=== PATIENT | male | born 1995 | race Caucasian/White ===

== ENCOUNTER 2017-02-07 02:07 | Observation (INO) | payer OTHER ==
[~2017-02-07] VITALS: Ht 185.4 cm; Wt 72.6 kg
--- NOTE | 2017-02-07 02:39 | NUR ---
21YO MALE TO TRIAGE W/CO ABD PAIN THAT AWOKE HIM TONITE. DENIES ANY N,V,D. STTES LAST BM WAS 02/06.
--- NOTE | 2017-02-07 02:46 | NUR ---
AMB BACK TO RM 5 VOMITTED LG AMT UNDIG FOOD
--- NOTE | 2017-02-07 03:03 | NUR ---
MOVED TO 4 LABS DRAWN -- SST.LAV,BLUE,DOYLE,PINK ALL SENT
--- NOTE | 2017-02-07 03:05 | NUR ---
KIMBERLEE MENDIETA MD
[2017-02-07 03:06] LABS: ABSOLUTE BASOPHIL COUNT 0 /CUMM (0.0-0.2); ABSOLUTE EOSINOPHIL COUNT 0.3 /CUMM (0.0-0.7); ABSOLUTE GRANULOCYTE CT 15.4 /CUMM (1.4-6.5); ABSOLUTE LYMPH COUNT 2.2 /CUMM (1.2-3.4); ABSOLUTE MONOCYTE COUNT 1.7 /CUMM (0.10-0.60); BASOPHIL % 0.1 % (0.0-2.0); EOSINOPHIL % 1.8 % (0-5); GRANULOCYTE % 78.1 % (42.2-75.2); HEMATOCRIT 42.7 % (42-52); MEAN CORPUSCULAR HGB 30.1 PG (27.0-31.0); MEAN CORPUSCULAR VOLUME 91.2 FL (80.0-94.0); MEAN PLATELET VOLUME 7.7 FL (7.4-10.4); PLATELET COUNT 274 /CUMM (130-400); RBC DISTRIBUTION WIDTH 12.7 % (11.5-14.5); RED BLOOD CELL CT 4.69 /CUMM (4.70-6.10); WHITE BLOOD CELL COUNT 19.8 /CUMM (4.8-10.8)
--- NOTE | 2017-02-07 03:20 | NUR ---
TO AND FROM CT VIA STRETCHER
--- NOTE | 2017-02-07 03:42 | ED GI/GU/ABDOMINAL COMPLAINT ---
History of Present Illness General Chief Complaint: Abdominal Pain/Flank Pain Stated Complaint: "PER ABD PAIN" Vital Signs & Intake/Output Vital Signs & Intake/Output Vital Signs Date Time Temp Pulse Resp B/P B/P Pulse O2 O2 Flow FiO2 Mean Ox Delivery Rate 02/07 0510 97.0 56 18 106/65 98 Room Air 02/07 0304 98 Room Air 02/07 0243 97.4 68 16 120/78 98 Room Air Room Air Allergies Coded Allergies: No Known Allergies (02/07/17) Reconcile Medications No Known Home Medications Triage Note: 21YO MALE TO TRIAGE W/CO ABD PAIN THAT AWOKE HIM TONITE. DENIES ANY N,V,D. STTES LAST BM WAS 02/06. HPI: Mr. Coats 21 YO M, smoker(10 cigarettes/day) with no significant PMH presented to ED with CC of right lower abdominal since yesterday morning, nausea and vomiting for last 6 hours. According to patient he was all right since last morning when he had pain in right lower abdomen, continuous, sharp, 7/10, and gradually increased to 8/10, aggravated by movement and relieved if he stayed still in bed. He reported that last time he had meal around 6:00pm and after that he was feeling nauseated and he vomited multiple times before he came to hospital and last time he throw up in the hospital. The vomitus was brownish in color, non bloody and no foul smell in it. Patient denied burning micturation, diarrhea, recent flu, chest pain, dyspnea, rash and headache. I examined the patient, on examination: right iliac fossa tenderness +ve rebound tenderness +ve Rovsing sign +VE Sluggish bowel movements Mohamud score: 7/10 (JOHANA MOSES MD) General Source: patient, family Exam Limitations: no limitations Triage Nurses Notes Reviewed? yes Duration: day(s): Timing: recent history Quality/Severity: sharpness Location: right lower quadrant Radiation: no radiation Activities at Onset: none Prior Abdominal Problems: none Modifying Factors: Worsens With: movement, palpation. Associated Symptoms: abdominal pain, nausea/vomiting (LEONOR LOU,FRANCESCA Feliz) Past History Travel History Traveled to [place] past 21 day No Psychosocial History What is your primary language Ecuadorean Tobacco Use: Current Daily Use Daily Tobacco Use Amount/Type: =< 4 Cigarettes daily (JOHANA MOSES MD) Medical History Any Pertinent Medical History? see below for history Surgical History Surgical History: none Family History Hx Contributory? No (FRANCESCA COOK MD) Review of Systems Review of Systems Constitutional: Reports: malaise. EENTM: Reports: no symptoms. Respiratory: Reports: no symptoms. Cardiovascular: Reports: no symptoms. GI: Reports: abdominal pain, nausea, vomiting. Genitourinary: Reports: no symptoms. Musculoskeletal: Reports: no symptoms. Skin: Reports: no symptoms. (JOHANA MOSES MD) Physical Exam Physical Exam General Appearance: alert, awake, moderate distress Head: atraumatic Eyes: Bilateral: normal appearance, PERRL, EOMI, normal inspection. Ears, Nose, Throat, Mouth: hearing grossly normal Neck: normal inspection Respiratory: normal breath sounds Cardiovascular: regular rate/rhythm Gastrointestinal: abnormal bowel sounds, rebound, tenderness Extremities: normal range of motion Neurologic/Psych: awake, alert, oriented x 3 Skin: intact, normal color, warm/dry (JOHANA MOSES MD) Physical Exam Gastrointestinal: normal bowel sounds, soft, rlq tenderness. positive rosvig's sign Core Measures ACS in differential dx? No Severe Sepsis Present: No Septic Shock Present: No (LEONOR LOU,FRANCESCA Feliz) Progress Differential Diagnosis: appendicitis, urethritis, gastroenteritis, mesenteric lymphadenitis, Meckel's diverticulitis Plan of Care: Orders Procedure Date/time Status Nothing by Mouth 02/07 B Active Pathway - chart 02/07 0550 Active Patient Data 02/07 0550 Active Saline Lock 02/07 05 Active Misc Message 02/07 05 Active ED Holding Orders 02/07 0539 Active Vital Signs 02/07 0539 Active Code Status 02/[address] in observation 02/07 0529 Active LIPASE 02/07 0213 Complete HEPATIC FUNCTION PANEL 02/07 021 Complete CBC WITHOUT DIFFERENTIAL 02/07 213 Complete BASIC METABOLIC PANEL 02/07 021 Complete AMYLASE 02/07 0213 Complete VTE Mechanical Prophylaxis 02/07 UNK Active Vital Signs 02/07 UNK Active Intake & Output 02/07 UNK Active Current Medications Sig/Bird Start time Last Medication Dose Stop Time Status Admin Ampicillin Sodium/ 3,000 MG Q6 02/07 1030 UNVr Sulbactam Sodium (Unasyn) Sodium Chloride 100 ML (Normal Saline 0.9%) Dextrose/Sodium 1,000 ML .[id number] 02/07 600 UNVr 02/07 Chloride 0610 (D5W-1/2 Normal Saline 1000ML) Heparin Sodium 5,000 UNIT Q8 02/07 600 UNVr (Porcine) Morphine Sulfate 4 MG Q4-6 PRN PRN 02/07 600 UNVr 02/07 (Morphine) 0622 Ondansetron HCl 4 MG Q8P PRN 02/07 600 UNVr (Zofran) Laboratory Tests 02/07/17 0255: Anion Gap 15, Estimated GFR > 60, BUN/Creatinine Ratio 25.0, Glucose 109 H, Calcium 10.0, Total Bilirubin 0.6, Direct Bilirubin 0.4, AST 25, ALT 25, Alkaline Phosphatase 61, Total Protein 7.6, Albumin 5.0, Amylase 88, Lipase 435 H, CBC w Diff MAN DIFF ORDERED, RBC 4.69 L, MCV 91.2, MCH 30.1, RDW 12.7, MPV 7.7, Gran % 78.1 H, Lymphocytes % 11.4 L, Monocytes % 8.6, Eosinophils % 1.8, Basophils % 0.1, Absolute Granulocytes 15.4 H, Segmented Neutrophils 85 H, Absolute Lymphocytes 2.2, Lymphocytes 5 L, Monocytes 4, Absolute Monocytes 1.7 H, Eosinophils 5, Absolute Eosinophils 0.3, Basophils 1, Absolute Basophils 0, Platelet Estimate ADEQUATE, Normocytic RBCs VERIFIED, Normochromic RBCs VERIFIED , PUBS MCHC 33.0, Fld Total RBCs Counted 100 Per pt. history and physical exam i spoke to the patient that we are suspecting appendicitis but we will run few tests to confirm it. Labs were ordered that turned wbc 19k and i spoke i spoke to Dr. Cook and he ordered CT scan abdomen to confirm it. CT scan showed appendicitis with fecolith in it. Dr. Cook went to the patient and informed them about the plan of care and decided to call surgery for appendectomy. (JOSUÉ LOU,[place]) Diagnostic Imaging: Viewed by Me: CT Scan. Discussed w/RAD: CT Scan. Radiology Impression: abd/pelvic ct.... appendicitis... full report below. Initial ED EKG: none Comments: PATIENT: JOSUE MAKI PRESENT AGE: 21 PATIENT ACCOUNT NO: [id number] : 95 LOCATION: [facility] ORDERING PHYSICIAN: FRANCESCA COOK MD SERVICE DATE: 02/07/17 EXAM TYPE: CAT - CT ABD & PELVIS W/O IV CONTRAS EXAMINATION: CT ABDOMEN AND PELVIS WITHOUT CONTRAST CLINICAL INFORMATION: Right lower quadrant pain. COMPARISON: None TECHNIQUE: Multidetector volumetric imaging was performed from the superior aspect of the liver through the pubic symphysis. Sagittal and coronal reformatted images were obtained on the technologist's workstation. DLP: 271.9 mGy-cm FINDINGS: LUNG BASES: The visualized lung bases are unremarkable. LIVER, GALLBLADDER, AND BILIARY TREE: The liver is normal in size, shape, and attenuation. No focal hepatic lesion or biliary ductal dilatation is present. The gallbladder is unremarkable with no evidence of radiopaque gallstones, gallbladder wall thickening, or obvious pericholecystic inflammatory changes. PANCREAS: Unremarkable. SPLEEN: Unremarkable. ADRENAL GLANDS: Unremarkable. KIDNEYS AND URETERS: The kidneys are normal in size, shape, and attenuation. No hydronephrosis, hydroureter, or calculi seen. No perinephric stranding. BLADDER: Unremarkable. GASTROINTESTINAL TRACT: There is edema in the mesentery in the right lower quadrant around the cecum. The appendix is edematous and dilated to a diameter of about 1.3 cm. There is no pendulous measuring 1 cm in the appendix. No abscess or perforation. No acute change of the larger small bowel loops. Moderate volume of stool in the colon. MESENTERY: Periappendiceal edema in the right lower quadrant from appendicitis. No free air. No abscess. ABDOMINAL WALL: No significant hernia is appreciated. LYMPH NODES: Normal. VASCULAR: Unremarkable. PELVIC VISCERA: Unremarkable. OSSEOUS STRUCTURES: Unremarkable. IMPRESSION: Appendicitis with appendicolith. DICTATED BY: KLEBER WYNNE MD DATE/TIME DICTATED:02/07/17337 SEISMOGRAPH OPERATOR:ANGEL LUIS DATE/TIME TRANSCRIBED:02/07/17337 CONFIDENTIAL, DO NOT COPY WITHOUT APPROPRIATE AUTHORIZATION. <Electronically signed in Other Vendor System> SIGNED BY: KLEBER WYNNE MD 02/07/17 0344 (LEONOR LOU,FRANCESCA Feliz) Departure Departure Condition: Stable Referrals: KOREY LONG MD (PCP/Family) Departure Forms: Customer Survey General Discharge Information Prescriptions: Current Visit Scripts No Known Home Medications (JOSUÉ LOU,[place]) Departure Disposition: STILL A PATIENT Clinical Impression Primary Impression: Appendicitis OR/GI Note Spoke With: RUIZ VARGAS DO ED Treatment Decision: JOSUE MAKI requires urgent operative management or an emergent procedure that cannot be performed in the Emergency Room setting. Transport To: [facility] Resident Co-Sign Statement Statement: ED Attending supervision documentation- [x] I saw and evaluated the patient. I have also reviewed all the pertinent lab results and diagnostic results. I agree with the findings and the plan of care as documented in the Resident's documentation. pt with rlq abd tenderness... ct scan c/w appendicitis... pt to have surgery this AM. [] I have reviewed the ED Record and agree with the Resident's documentation. [] Additions or exceptions (if any) to the Resident's note and plan are summarized below: [] (LEONOR LOU,FRANCESCA Feliz)
--- NOTE | 2017-02-07 04:08 | NUR ---
RE EVAL BY DR GALVEZ MORPHINE GIVEN IV FOR PAIN UNASYN JERRICA. CALL PLACED TO SURG STUDENT TRUCK DRIVER.
--- NOTE | 2017-02-07 04:36 | NUR ---
RESTING QUIETLY AWAITING SURG EVAL.
--- NOTE | 2017-02-07 05:10 | NUR ---
SURG PA HERE FOR EVAL
--- NOTE | 2017-02-07 05:25 | Admission Core Measures ---
Admission Lab Results I reviewed the following labs: Laboratory Tests 02/07 025 Chemistry Sodium (137 - 145 mmol/L) 141 Potassium (3.5 - 5.1 mmol/L) 4.2 Chloride (98 - 107 mmol/L) 103 Carbon Dioxide (22 - 30 mmol/L) 24 Anion Gap (5 - 16) 15 BUN (9 - 20 mg/dL) 15 Creatinine (0.7 - 1.2 mg/dL) 0.6 L Estimated GFR (>60 ml/min) > 60 BUN/Creatinine Ratio (7 - 25 %) 25.0 Glucose (65 - 99 mg/dL) 109 H Calcium (8.4 - 10.2 mg/dL) 10.0 Total Bilirubin (0.2 - 1.3 mg/dL) 0.6 Direct Bilirubin (< 0.4 mg/dL) 0.4 AST (17 - 59 U/L) 25 ALT (21 - 72 U/L) 25 Alkaline Phosphatase (< 127 U/L) 61 Total Protein (6.3 - 8.2 g/dL) 7.6 Albumin (3.5 - 5.0 g/dL) 5.0 Amylase (30 - 110 U/L) 88 Lipase (23 - 300 U/L) 435 H Hematology CBC w Diff MAN DIFF ORDERED WBC (4.8 - 10.8 /CUMM) 19.8 H RBC (4.70 - 6.10 /CUMM) 4.69 L Hgb (14.0 - 18.0 G/DL) 14.1 Hct (42 - 52 %) 42.7 MCV (80.0 - 94.0 FL) 91.2 MCH (27.0 - 31.0 PG) 30.1 RDW (11.5 - 14.5 %) 12.7 Plt Count (130 - 400 /CUMM) 274 MPV (7.4 - 10.4 FL) 7.7 Gran % (42.2 - 75.2 %) 78.1 H Lymphocytes % (20.5 - 51.1 %) 11.4 L Monocytes % (1.7 - 9.3 %) 8.6 Eosinophils % (0 - 5 %) 1.8 Basophils % (0.0 - 2.0 %) 0.1 Absolute Granulocytes (1.4 - 6.5 /CUMM) 15.4 H Segmented Neutrophils (42.2 - 75.2 %) 85 H Absolute Lymphocytes (1.2 - 3.4 /CUMM) 2.2 Lymphocytes (20.5 - 51.1 %) 5 L Monocytes (1.7 - 9.3 %) 4 Absolute Monocytes (0.10 - 0.60 /CUMM) 1.7 H Eosinophils (0 - 5.0 %) 5 Absolute Eosinophils (0.0 - 0.7 /CUMM) 0.3 Basophils (0.0 - 2.0 %) 1 Absolute Basophils (0.0 - 0.2 /CUMM) 0 Platelet Estimate (ADEQUATE) ADEQUATE Normocytic RBCs VERIFIED Normochromic RBCs VERIFIED PUBS MCHC (33.0 - 37.0 G/DL) 33.0 Other Body Source Fld Total RBCs Counted (%) 100 Acute Coronary Syndrome Inclusion Criteria ACS Diagnosis No Inpatient Core Measures LDL Reminder: If No, please order W/I first 24hr of stay Congestive Heart Failure Inclusion Criteria CHF Diagnosis No Cerebrovascular accident Inclusion Criteria CVA/TIA Diagnosis No Inpatient Core Measures Bedside Swallow Eval Reminder: If BSE failed, place ST order Antithrombotic Reminder: Order Antithrombotic Medication by end of day 2 Antithrombotic Reminder: Document Reason Antithrombotic Not ordered by end of day 2 AFIB/Flutter Reminder: If Present, add to problem list AFIB/Flutter Reminder: Order Anticoag Medication for pts with AFIB/Flutter Atherosclerosis Reminder: If Present, add to problem list LDL Reminder: If No, please order W/I first 24hr of stay PT Order Reminder: If No, please order Venous thromboembolism Inpatient Core Measures VTE Risk Factors: No Risk Factors No [facility] VTE prophylaxis d/t No contraindications No VTE Pharm Prophylaxis d/t No contraindications Inclusion Criteria - Per Current guidelines, there needs to be overlap - treatment for the first 5 days of Warfarin therapy. - Parenteral Anticoagulation (IV or SC) needs to be - given along with Warfarin therapy. VTE Diagnosis No VTE Type NONE VTE Confirmed by (Test) NONE Problem List As ranked by this Provider includes Assessment & Plan 1. Appendicitis HOME MEDS Home Med List No Known Home Medications
--- NOTE | 2017-02-07 05:39 | History & Physical Pre-Op ---
TANIA SCHAEFER 02/07/17 0526: General Information and HPI MD Statement: I have seen and personally examined JOSUE MAKI and documented this H&P. The patient is a 21 year old M who presented with a patient stated chief complaint of [abdominal pain]. Source of Information: patient Exam Limitations: no limitations History of Present Illness: Mr. Maki is 21-year-old male who is a half a pack a day smoker otherwise no significant past medical history presents with acute onset of right lower quadrant abdominal pain that woke him up last night. He states that he was otherwise feeling well when he went to bed with mild abdominal cramping. He states that he had one episode of vomiting which consisted of a peanut butter and jelly sandwich which he had for dinner. He denies fever chills at home. His last bowel movement was yesterday afternoon which was normal, and he has no urinary complaints. He has no other complaints at this time. CAT scan results taken this morning demonstrate acute appendicitis with appendicolith. Allergies/Medications Allergies: Coded Allergies: No Known Allergies (02/07/17) Home Med list No Known Home Medications Past History Surgical History Pertinent Surgical History: none Past Family/Social History Psychosocial History Smoking Status: Current Everyday Smoker Review of Systems Review of Systems GI: Reports: abdominal pain, nausea, vomiting. Exam & Diagnostic Data Last 24 Hrs of Vital Signs/I&O Vital Signs Date Time Temp Pulse Resp B/P B/P Pulse O2 O2 Flow FiO2 Mean Ox Delivery Rate 02/07 0510 97.0 56 18 106/65 98 Room Air 02/07 0304 98 Room Air 02/07 0243 97.4 68 16 120/78 98 Room Air Room Air Intake & Output 02/07 0800 07/ 0000 02/06 1600 Intake Total Output Total Balance Patient 160 lb Weight Physical Exam General Appearance Alert, Oriented X3, Cooperative HEENT PERRLA Cardiovascular Regular Rate, Normal S1, Normal S2 Lungs Clear to Auscultation, Normal Air Movement Abdomen tender to right lower quadrant palpitation and McBurney's point, flat, soft, bowel sounds active, no evidence of peritonitis, no guarding Extremities No Edema, Normal Pulses Last 24 Hrs of Labs/Cali: Laboratory Tests 02/07/17 0255: Anion Gap 15, Estimated GFR > 60, BUN/Creatinine Ratio 25.0, Glucose 109 H, Calcium 10.0, Total Bilirubin 0.6, Direct Bilirubin 0.4, AST 25, ALT 25, Alkaline Phosphatase 61, Total Protein 7.6, Albumin 5.0, Amylase 88, Lipase 435 H, CBC w Diff MAN DIFF ORDERED, RBC 4.69 L, MCV 91.2, MCH 30.1, RDW 12.7, MPV 7.7, Gran % 78.1 H, Lymphocytes % 11.4 L, Monocytes % 8.6, Eosinophils % 1.8, Basophils % 0.1, Absolute Granulocytes 15.4 H, Segmented Neutrophils 85 H, Absolute Lymphocytes 2.2, Lymphocytes 5 L, Monocytes 4, Absolute Monocytes 1.7 H, Eosinophils 5, Absolute Eosinophils 0.3, Basophils 1, Absolute Basophils 0, Platelet Estimate ADEQUATE, Normocytic RBCs VERIFIED, Normochromic RBCs VERIFIED , PUBS MCHC 33.0, Fld Total RBCs Counted 100 Diagnostic Data Other Results SERVICE DATE: 02/07/17 EXAM TYPE: CAT - CT ABD & PELVIS W/O IV CONTRAS EXAMINATION: CT ABDOMEN AND PELVIS WITHOUT CONTRAST CLINICAL INFORMATION: Right lower quadrant pain. COMPARISON: None TECHNIQUE: Multidetector volumetric imaging was performed from the superior aspect of the liver through the pubic symphysis. Sagittal and coronal reformatted images were obtained on the technologist's workstation. DLP: 271.9 mGy-cm FINDINGS: LUNG BASES: The visualized lung bases are unremarkable. LIVER, GALLBLADDER, AND BILIARY TREE: The liver is normal in size, shape, and attenuation. No focal hepatic lesion or biliary ductal dilatation is present. The gallbladder is unremarkable with no evidence of radiopaque gallstones, gallbladder wall thickening, or obvious pericholecystic inflammatory changes. PANCREAS: Unremarkable. SPLEEN: Unremarkable. ADRENAL GLANDS: Unremarkable. KIDNEYS AND URETERS: The kidneys are normal in size, shape, and attenuation. No hydronephrosis, hydroureter, or calculi seen. No perinephric stranding. BLADDER: Unremarkable. GASTROINTESTINAL TRACT: There is edema in the mesentery in the right lower quadrant around the cecum. The appendix is edematous and dilated to a diameter of about 1.3 cm. There is no pendulous measuring 1 cm in the appendix. No abscess or perforation. No acute change of the larger small bowel loops. Moderate volume of stool in the colon. MESENTERY: Periappendiceal edema in the right lower quadrant from appendicitis. No free air. No abscess. ABDOMINAL WALL: No significant hernia is appreciated. LYMPH NODES: Normal. VASCULAR: Unremarkable. PELVIC VISCERA: Unremarkable. OSSEOUS STRUCTURES: Unremarkable. IMPRESSION: Appendicitis with appendicolith. DICTATED BY: KLEBER WYNNE MD DATE/TIME DICTATED:02/07/17337 PERSONNEL COUNSELOR:ANGEL LUIS DATE/TIME TRANSCRIBED:02/07/17337 Assessment/Plan Assessment/Plan: Mr. Maki is 21-year-old male with acute onset of right lower quadrant abdominal pain that woke him up early this morning. CAT scan results reveal acute appendicitis with appendicolith. He also has a leukocytosis to 19,000. He has no other complaints at this time. After discussion with Dr. Lara the patient will be taken to the operating room today for laparoscopic appendectomy. Plan IV Unasyn now Nothing by mouth IV fluids This plan was discussed with the family and patient who are in agreement As Ranked By This Provider Problem List: 1. Appendicitis SAM GARCIA ABRAHAM 02/07/17 1551: Attending Review Statement Attending Statement Attending Statement: examined this patient, discuss w/resident/PA/MOVER, agreed w/resident/PA/MOVER, discussed with family, reviewed images Attending Assessment/Plan: Patient seen and examined, agree with above. 1 day of abdominal pain, now in RLQ. +N/V. ROS is otherwise normal. CT scan + appendicitis. Will admit/IVF/IV Abx/NPO, and plan for Lap Appy today. D/W patient and family and ED staff.
--- NOTE | 2017-02-07 07:24 | NUR ---
ASSUMED CARE OF PT AT THIS TIME, PT RESTING ON STRETCHER. DENIES PAIN AT THIS TIME, PT AND MOTHER AWARE HE IS DUE TO GO TO THE OR AT SOME POINT THIS MORNING. FLUIDS REMIAN INFUSING PER EMAR. PT IN HOSP GOWN, PRE-OP SCRUB PROVIDED TO PT TO PERFORM WHEN HE GETS UP TO USE BATHROOM. DENIES N/V AT THIS TIME.
--- NOTE | 2017-02-07 08:24 | NUR ---
PT STATES PAIN IS COMING BACK AT THIS TIME. SURGICAL PA PAGED AT THIS TIME D/T PT NOT BEING DUE FOR PAIN MEDICATION UNTIL 1030 PER PRN ORDER
--- NOTE | 2017-02-07 08:32 | NUR ---
PT MEEDICATED PER EMAR AT THIS TIME WITH 4MG IV MORPHINE, STATES PAIN IS 8/10 AT THIS TIME. AWARE STILL WAITING OR TO CALL FOR HIM
--- NOTE | 2017-02-07 09:08 | NUR ---
PT REPORTS PAIN IS BETTER AT THIS TIME. FAMILY REMAINS AT BEDSIDE
--- NOTE | 2017-02-07 10:12 | NUR ---
PT REMAINS RESTING ON STRETCHER WITH FAMILY AT BEDSIDE. OFFERS NO COMPLAINTS
--- NOTE | 2017-02-07 10:43 | NUR ---
IV UNASYN INFUISNG PER ORDER AT THIS TIME STATES PAIN IS BACK 8/10, MEDICATED WITH MORPHINE 4MG IV PER PRN ORDER
--- NOTE | 2017-02-07 12:25 | NUR ---
DR SILVERMAN AT BEDSIDE
--- NOTE | 2017-02-07 12:41 | NUR ---
PT REMAINS RESTING ON STRETCHER, AWARE STILL WAITING CFO CONTROLLER FROM OR.
--- NOTE | 2017-02-07 13:18 | NUR ---
PT MEEICATED FOR PAIN AT THIS TIME.
--- NOTE | 2017-02-07 14:16 | NUR ---
OR READY FOR PT AT THIS TIME' DISTRIBUTION HERE, MOTHER TAKING PTS CLOTHING AND VALUBLES
--- NOTE | 2017-02-07 15:51 | Operative Report ---
Operative/Inv Procedure Report Surgery Date: 02/07/17 Name of Procedure: Laparoscopic appendectomy Pre-Operative Diagnosis: Acute Appendicitis Post-Operative Diagnosis: Same Estimated Blood Loss: less than 50ml Surgeon/Aba Therapist: RUIZ VARGAS DO Anesthesia: general endotracheal tube IV Fluids: 1000 cc Drains: None Specimens: Appendix Complications: None Condition: Stable Operative Indication: This is a 21-year-old male that presented to the emergency room with abdominal pain. After appropriate workup was completed the patient was diagnosed with acute appendicitis. A laparoscopic possible open appendectomy were discussed in detail. All risks including but not limited to bleeding, infection, and injury to surrounding structures were discussed in detail. The patient understood everything and decided to proceed. Operative/Procedure Note Note: The patient was brought to the operating room and placed on the table in supine position. Venodyne stockings were placed and adequate general endotracheal anesthesia was obtained. The patient was prepped and draped in standard surgical fashion. Began the procedure by making a 2 cm transverse incision in the infraumbilical crease. Incision was carried down to the fascia. Once the fascia was clearly visualized it was picked up between 2 Carmen clamps and divided in the midline. Once we entered the peritoneum 2 stay Vicryl sutures were placed on each side and a 12 mm blunt port was inserted. The abdominal cavity was insufflated to 15 mmHg. And a 10 mm 30 laparoscope was introduced. Upon initial examination no obvious gross pathology was seen, some hyperemia and inflammatory reaction was noted in the right lower quadrant. Accessory trocars were placed, both 5 mm, one in the left lower quadrant and one suprapubic. Ascending colon was identified and traced proximally, terminal ileum was identified, and we did note the appendix coursing into the pelvis. The base of the appendix was identified and appeared healthy. Distal appendix was markedly inflamed and thickened and adhered to the sidewall and to the omentum. Using blunt dissection and harmonic scalpel the appendix was carefully dissected away from surrounding structures. Once the appendix was away from the omentum and the sidewall the mesoappendix was divided using Harmonic scalpel maintaining hemostasis until the appendiceal base was clearly visualized and freely up in the air. At that point we switched to a 5 mm laparoscope and a 45 mm bray Endo DIOGENES load was inserted and the base was transected. The appendix was placed in an Endobag and removed through the umbilical trocar site. The abdominal cavity was reinsufflated and we switched back to a 10 mm laparoscope. Staple line was examined and some bleeding was noted, that was controlled using endoclips. No other abnormalities were noted. Seropurulent fluid was noted in the pelvis and some purulent was noted as well, ?perforation vs rupture during manipulation. The pelvis and the right lower quadrant were irrigated until clear. All ports were removed under direct visualization, no obvious bleeding was noted. The umbilical trocar site was closed using 0 Vicryl suture. The skin was closed using 4-0 Monocryl. Steri-Strips and dressings were placed. The patient was successfully extubated and transferred to the recovery room in stable condition. The patient tolerated procedure well with no complications. Findings: Markedly distended/suppurative appendix, + seropurulent fluid, ?perforation CC: ETHAN LOU,KOREY
[2017-02-07 17:40] VITALS: BP 116/78
--- NOTE | 2017-02-07 20:19 | PN- General Surgery ---
Subjective Subjective: The patient is seen this evening postoperatively. He reports feeling sore but otherwise comfortable. He denied any nausea and was tolerating clear liquid diet. Objective Vital Signs and I&Os Vital Signs Date Time Temp Pulse Resp B/P B/P Pulse O2 O2 Flow FiO2 Mean Ox Delivery Rate 02/07 1740 97.4 60 18 116/78 99 Room Air 07/06 1416 98.2 76 18 132/76 98 Room Air 07/06 1208 99.2 52 18 121/67 97 Room Air 07/06 1002 98.3 58 18 107/67 97 Room Air 07/06 0710 98.4 58 18 121/79 99 Room Air 07/06 0510 97.0 56 18 106/65 98 Room Air 07/06 0304 98 Room Air 07/06 0243 97.4 68 16 120/78 98 Room Air Room Air Intake & Output 07/06 1600 07/06 0800 07/06 0000 07/05 1600 07/05 0800 07/05 0000 Intake Total Output Total Balance Patient 160 lb Weight Physical Exam: Gen.: Alert and in no obvious distress Skin: Warm and dry Cardiac: S1-S2 regular Pulmonary: Bilateral breath sounds were equal with good exchange Abdomen: Soft, nondistended, appropriate incisional tenderness, bowel sounds sluggish. Surgical incision was clean, dry, and intact. Extremities: Bilateral lower extremities are warm without calf tenderness or significant edema. Assessment/Plan Assessment/Plan Assessment: 21-year-old male status post laparoscopic appendectomy for perforated appendicitis. Postoperative the patient is progressing as expected, and his pain is under adequate control. Plan: Clear liquid diet tonight and advance to regular diet tomorrow morning if tolerating 24 hours of postoperative antibiotics for infection Continue current pain regiment GI and DVT prophylaxis Out of bed and ambulate Follow-up morning laboratory studies Incentive spirometry Core Measures/Miscellaneous Venous Thromboembolism VTE Risk Factors: Surgery VTE Contraindications: No Contraindications VTE Diagnosis: No VTE Type: NONE VTE Confirmed by (Test): NONE Beta Zohra Is Beta Zohra a Home Med? No Antibiotics Is Patient on Antibiotics? Yes If Yes: infection
--- NOTE | 2017-02-07 20:26 | NUR ---
PT ARRIVED TO FLOOR AT 1740 VIA STRETCHER FROM PACU. A&OX3, ROOM AIR. C/O 03/14 PAIN IN ABD. 3 BANDAIDS PRESENT ON ABDOMEN, C/D/I. DENIES FLATUS. DENIES OTHER COMPLAINTS/NEEDS AT THIS TIME. MEDICATED FOR PAIN PER EMAR. VSS. ORIENTED TO ROOM AND CALL MONTENEGRO. WILL MONITOR.
[2017-02-07 22:31] VITALS: BP 106/60
[2017-02-08 06:00] VITALS: BP 102/70
--- NOTE | 2017-02-08 07:15 | PN- Student ---
See Addendum DOMINIC RICE 02/08/17 0706: Subjective Subjective: Patient seen this am, no acute events overnight, no complaints at this time. Denies chest pain, SOB, headaches, dizziness, n/v. Reports lower abdominal soreness. Is voiding but no flatus or bm. Is tolerated clears diet well. Objective Objective: Vital Signs Result Date Time Pulse Ox 97 02/07 2231 B/P 106/60 02/07 2231 O2 Delivery Room Air 02/07 2231 Temp 98.1 02/07 2231 Pulse 60 02/07 2231 Resp 19 02/07 2231 O2 Flow Rate Room Air 02/07 0243 Intake & Output 02/08 0000 02/07 1600 02/07 0800 Intake Total 450 Output Total Balance 450 Intake, IV 350 Intake, Oral 100 Patient 160 lb 160 lb Weight General: awake, alert, oriented, NAD Lungs: CTAB, no wheeze/rhonchi/rales, good air movement bilaterally Heart: S1, S2, RRR, no M, R, G Abdomen: Soft, non-distended, hypoactive bowel sounds, mild celina-incisional tenderness, dressings clean, dry and intact Extremities: warm, no peripheral edema, gross motor/sensory function in tact, no calf tenderness bilaterally, ALPS in place Assessment/Plan Assessment: This is a 21 y/o male POD #1 laparoscopic appendectomy for appendicitis receiving 24 hours IV abx for intraoperative perforation of appendix. Pain is adequately controlled. Recovering as expected. Plan: Diet: advance as tolerated DVT ppx: ALPS Pain: continue current pain regimen Abx: continue 23 hours post op for appendiceal perf OOB and ambulate Incentive spirometry Consider D/C to home today after last dose of abx Will discuss with attending TANIA SCHAEFER 02/08/17 0809: Subjective Subjective: AGREE WITH ABOVE IV ABX TODAY ADVANCE DIET OOB/AMBULATE PLAN FOR HOME D/C LATER TODAY
--- NOTE | 2017-02-08 12:32 | Patient Discharge Instructions ---
Discharge Instructions General Discharge Information You were seen/treated for: acute appendicitis You had these procedures: laparoscopic appendectomy Watch for these problems: temp>101.5 increasd wound drainage/redness No bath, but you may shower: Yes Other wound care: keep wound clean and dry Special Instructions: Please take antibiotics by mouth at home for 10 days Diet Continue normal diet: Yes Activity Activity Limited to: Weight bear as tolerated Other activity limits: no strenuous activity Acute Coronary Syndrome Inclusion Criteria At DC or during hospital stay patient has or had the following: ACS DIAGNOSIS No Discharge Core Measures Meds if any: Prescribed or Continued at Discharge Meds if any: NOT Prescribed or Continued at Discharge Congestive Heart Failure Inclusion Criteria At DC or during hospital stay patient has or had the following: CHF DIAGNOSIS No Discharge Core Measures Meds if any: Prescribed or Continued at Discharge Meds if any: NOT Prescribed or Continued at Discharge Cerebrovascular accident Inclusion Criteria At DC or during hospital stay patient has or had the following: CVA/TIA Diagnosis No Discharge Core Measures Meds if any: Prescribed or Continued at Discharge Meds if any: NOT Prescribed or Continued at Discharge Venous thromboembolism Inclusion Criteria VTE Diagnosis No VTE Type NONE VTE Confirmed by (Test) NONE Discharge Core Measures - Per Current guidelines, there needs to be overlap - treatment for the first 5 days of Warfarin therapy. - If discharged on Warfarin prior to 5 days of - overlap therapy, the patient will need to be - assessed for post discharge needs including - *Post discharge parental anticoagulation - *Warfarin and/or parental anticoagulation education - *Follow up date to check INR post discharge At least 5 days overlap therapy as Inpatient No Meds if any: Prescribed or Continued at Discharge Note: Overlap Therapy is Warfarin and Anticoagulant Meds if any: NOT Prescribed or Continued at Discharge
[2017-02-08] MEDS ORDERED: AUGMENTIN 875-1 EACH PO (12:35)
[2017-02-08] MEDS ORDERED: PERCOCET 5-3251 EACH PO (12:35)
--- NOTE | 2017-02-08 15:03 | Surg Short-stay <48hrs Dis Sum ---
Visit Information Visit Dates Admission Date: 02/07/17 Discharge Date: 02/08/17 Surgical Short Stay DC Summary Admission Diagnosis: Acute appendicitis Final Diagnosis: Acute appendicitis with perforation Procedure(s): Laparoscopic appendectomy Summary/Significant Findings: Mr. Lind is a 21-year-old male who presented with sudden onset of acute periumbilical abdominal pain that woke him up at 3 AM. Evaluation emergency room and CAT scan demonstrates acute appendicitis with appendicolith. He was taken to the operating room the following morning for laparoscopic appendectomy without incident. He tolerated the procedure well he was transferred to the floor and was kept overnight for IV antibiotics. Condition at Discharge: Stable Discharge Disposition: home or self care Discharge instructions provided to patient/family: Yes Post discharge follow-up plan: Please contact Dr. Murphy for temperature greater than 101.5, increased wound drainage/redness, increased abdominal pain, fever and/or chills Please take antibiotics for 10 days Follow-up with Dr. Murphy next week
[2017-02-08 15:12] VITALS: BP 100/60
== END 2017-02-08 17:08 ==
LOC: ERH 02:07 → ERHI 05:29 → 2NA 05:29 → EDBEDREQTM 16:24 → EDBEDREQ 16:24 → EDBEDREQSVC 16:24 → ENRESERV 16:29 → ENTRNSPT 17:30 → 2NA 17:37 → CMPTRNSPT 18:10 → 2NA 02-08 17:08
PROVIDERS: Pediatrics; ADMIT Surgery
DX: K35.2 Acute appendicitis with generalized peritonitis (principal); F17.200 Nicotine dependence, unspecified, uncomplicated; D72.829 Elevated white blood cell count, unspecified
CPT/HCPCS: 6030; 74176; 96372; 96374; 96375; C9399; G0378; J0131; J0690; J1644; J2405; J7042

== ENCOUNTER 2017-02-12 06:28 | Inpatient (IN) | payer OTHER ==
[~2017-02-12] VITALS: Ht 185.4 cm; Wt 72.6 kg
[~2017-02-12 06:28] MED LIST: AUGMENTIN 875-1 EACH PO; PERCOCET 5-3251 EACH PO
--- NOTE | 2017-02-12 06:55 | NUR ---
TRIAGE: PATIENT TO ER FROM HOME REPORTING S/P APPENDECTOMY AT [facility] ON SATURDAY, TAKING RX FOR PERCCOET DIRECTED W/ CONTINUED ABD PAIN. PATIENT REPORTING +BM X2 SINCE SURGERY W/O STRAINING.
--- NOTE | 2017-02-12 07:05 | ED GI/GU/ABDOMINAL COMPLAINT ---
History of Present Illness General Chief Complaint: General Adult Stated Complaint: APPENDECTOMY ON SATURDAY, ABD PAIN PER PT Source: patient, old records Exam Limitations: no limitations Vital Signs & Intake/Output Vital Signs & Intake/Output Vital Signs Date Time Temp Pulse Resp B/P B/P Pulse O2 O2 Flow FiO2 Mean Ox Delivery Rate 02/12 1052 97.2 70 18 122/64 100 02/12 0913 97.0 58 20 115/56 100 Room Air 02/12 0703 98 Room Air 02/12 0656 97.9 64 18 126/73 100 Room Air Allergies Coded Allergies: No Known Allergies (02/07/17) Reconcile Medications Amoxicillin/Potassium Clav (Augmentin 875-125 Tablet) 875 MG-125 MG TABLET 1 TAB PO BID INFECTION Oxycodone HCl/Acetaminophen (Percocet 5-325 MG Tablet) 5 MG-325 MG TABLET 1-2 TAB PO Q4P PRN PAIN SCALE 4-6 (MODERATE) Triage Note: TRIAGE: PATIENT TO ER FROM HOME REPORTING S/P APPENDECTOMY AT [facility] ON SATURDAY, TAKING RX FOR PERCCOET DIRECTED W/ CONTINUED ABD PAIN. PATIENT REPORTING +BM X2 SINCE SURGERY W/O STRAINING. Triage Nurses Notes Reviewed? yes Onset: Gradual Duration: day(s): (FEW) Timing: multiple episodes today Location: left lower quadrant, right lower quadrant Radiation: no radiation Activities at Onset: none Associated Symptoms: abdominal pain, nausea/vomiting HPI: 21 year old male s/p laparoscopy appendectomy on saturday who presents to the ER for chief complaint of abdominal pain for the past few days. He is taking percocet 2 tabs every 3 hrs for pain. Also reports loose stools. Patient reports poor appetitie, nausea. (JULIO LOU,TIM) Past History Travel History Traveled to [place] past 21 day No Medical History Any Pertinent Medical History? 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 No (JULIO LOU,TIM) Review of Systems Review of Systems Constitutional: Denies: chills, fever. EENTM: Reports: no symptoms. Respiratory: Denies: short of breath. Cardiovascular: Denies: chest pain. GI: Reports: abdominal pain, diarrhea, nausea, vomiting. Genitourinary: Reports: no symptoms. Musculoskeletal: Reports: no symptoms. Skin: Reports: no symptoms. Neurological/Psychological: Reports: no symptoms. Hematologic/Endocrine: Denies: bruising, bleeding, polyuria, polydipsia. Immunologic/Allergic: Denies: splenectomy. All Other Systems: Reviewed and Negative (TIM KIM MD) Physical Exam Physical Exam General Appearance: alert, awake, anxious, mild distress, thin Head: atraumatic, normal appearance Eyes: Bilateral: normal appearance, PERRL. Ears, Nose, Throat, Mouth: hearing grossly normal, moist mucous membrane Neck: normal inspection, supple, full range of motion Respiratory: normal breath sounds, chest non-tender, no respiratory distress Cardiovascular: regular rate/rhythm Peripheral Pulses: 2+ brachial (L), 2+ radial (L) Gastrointestinal: soft, tenderness (PERIUMBILICAL, RLQ, LLA), NO GUARDING, NOT DISTENDED Extremities: normal range of motion Neurologic/Psych: no motor/sensory deficits, awake, alert, oriented x 3 Core Measures ACS in differential dx? No Severe Sepsis Present: No Septic Shock Present: No (JULIO LOU,TIM) Progress Differential Diagnosis: COLITIS, DEHYDRATION, ACUTE KIDNEY INJURY, c. DIFFICILE, ABSCESS Plan of Care: Orders Procedure Date/time Status Full Liquid Diet 02/12 D Active STOOL: R/O YERSINIA 02/12 1134 Active STOOL:R/O VIBRIO 02/12 1134 Active CULTURE,STOOL 02/12 1134 Active C.DIFFICILE 02/12 1134 Active Patient Data 02/12 1128 Active OXYGEN SETUP (GEN) 02/12 1110 Active Saline Lock 02/12 1110 Active Admit to inpatient 02/12 1110 Active Vital Signs 02/12 1110 Active Activity/Ambulation 02/12 1110 Active BLOOD CULTURE 02/12 1110 Active Code Status 02/12 1110 Active URINALYSIS 02/12 0700 Complete COMPREHENSIVE METABOLIC PANEL 02/12 07 Complete CBC WITHOUT DIFFERENTIAL 02/12 07 Complete Intake & Output 02/12 0646 Active Current Medications Sig/Bird Start time Last Medication Dose Stop Time Status Admin Metronidazole 500 MG ONCE ONE 02/12 1115 AC (Flagyl) 02/12 1214 N/A 1 UNIT (No Carrier) Laboratory Tests 02/12/17 0721: Urine Color YEL, Urine Clarity CLEAR, Urine pH 7.0, Ur Specific [place] 1.020, Urine Protein 100 H, Urine Ketones >=80, Urine Nitrite NEG, Urine Bilirubin POS @ICTO H, Urine Urobilinogen 0.2, Ur Leukocyte Esterase NEG, Ur Microscopic SEDIMENT EXAMINED, Urine RBC 10-15 H, Urine WBC RARE, Ur Epithelial Cells FEW, Urine Bacteria FEW H, Urine Mucus MANY H, Urine Hemoglobin MOD H, Urine Glucose NEG 02/12/17 0702: Anion Gap 13, Estimated GFR > 60, BUN/Creatinine Ratio 20.0, Glucose 88, Calcium 8.9, Total Bilirubin 0.7, AST 25, ALT 42, Alkaline Phosphatase 111, Total Protein 6.1 L, Albumin 3.5, Globulin 2.6, Albumin/Globulin Ratio 1.3, CBC w Diff NO MAN DIFF REQ, RBC 4.11 L, MCV 89.9, MCH 30.0, RDW 12.8, MPV 7.7, Gran % 72.7, Lymphocytes % 9.3 L, Monocytes % 12.7 H, Eosinophils % 5.0, Basophils % 0.3, Absolute Granulocytes 6.8 H, Absolute Lymphocytes 0.9 L, Absolute Monocytes 1.2 H, Absolute Eosinophils 0.5, Absolute Basophils 0, PUBS MCHC 33.4 Microbiology 02/12 1140 BLOOD: Blood Culture - RECD 02/12 1134 STOOL: Clostridium difficile Toxin A & B - ORD 02/12 1134 STOOL: Vibrio Culture - ORD 02/12 1134 STOOL: Yersinia Culture - ORD 02/12 1134 STOOL: Stool Culture - ORD 02/12 1110 BLOOD: Blood Culture - ORD Initial ED EKG: none Hand-Off Endorsed To: WILLIAMS BEE MD Endorsed Time: 720 Pending: labs, other (REEVALUATION) (TIM KIM MD) Diagnostic Imaging: Viewed by Me: CT Scan. Discussed w/RAD: CT Scan. Radiology Impression: colitis Comments: Discussed with Surgery defers to medicine for hospitalization. (WILLIAMS BEE MD) Departure Departure Disposition: STILL A PATIENT Condition: Stable Referrals: KOREY LONG MD (PCP/Family) Departure Forms: Customer Survey General Discharge Information (TIM KIM MD) Departure Clinical Impression Primary Impression: Acute colitis Secondary Impressions: Dehydration syndrome, Hypokalemia, Nausea, vomiting, and diarrhea Admission Note Spoke With: LILLI BLANCHARD MD Documentation of Exam: Documentation of any treatments & extenuating circumstances including Concerns Regarding Discharge (functional status, medication knowledge or non-compliance, living conditions, etc.) that warrant an admission rather than observation: IV fluids antiemetics antibiotics analgesia serial lab exam replete K medication adjustment advance diet continuing care discharge planning (WILLIAMS BEE MD)
--- NOTE | 2017-02-12 07:09 | NUR ---
BLOOD DRAWN AND SENT TO LAB [facility] BL[facility]
--- NOTE | 2017-02-12 07:15 | NUR ---
ASSUMED CARE. IV EST. MEDICATED PER EMAR.
[2017-02-12 07:33] LABS: ABSOLUTE BASOPHIL COUNT 0 /CUMM (0.0-0.2); ABSOLUTE EOSINOPHIL COUNT 0.5 /CUMM (0.0-0.7); ABSOLUTE GRANULOCYTE CT 6.8 /CUMM (1.4-6.5); ABSOLUTE LYMPH COUNT 0.9 /CUMM (1.2-3.4); ABSOLUTE MONOCYTE COUNT 1.2 /CUMM (0.10-0.60); BASOPHIL % 0.3 % (0.0-2.0); GRANULOCYTE % 72.7 % (42.2-75.2); MEAN CORPUSCULAR HGB CONC 33.4 G/DL (33.0-37.0); MEAN CORPUSCULAR VOLUME 89.9 FL (80.0-94.0); MEAN PLATELET VOLUME 7.7 FL (7.4-10.4); PLATELET COUNT 299 /CUMM (130-400); RBC DISTRIBUTION WIDTH 12.8 % (11.5-14.5); RED BLOOD CELL CT 4.11 /CUMM (4.70-6.10)
[2017-02-12 07:42] LABS: HEMATOCRIT 36.9 % (42-52); WHITE BLOOD CELL COUNT 9.3 /CUMM (4.8-10.8)
--- NOTE | 2017-02-12 08:53 | NUR ---
TO AND FROM CAT SCAN.
--- NOTE | 2017-02-12 10:20 | CT SCAN REPORT ---
EXAMINATION: CT ABDOMEN AND PELVIS WITH CONTRAST CLINICAL INFORMATION: Nausea vomiting diarrhea, consider right lower quadrant tenderness. Status post appendectomy. COMPARISON: 02/12/2017. TECHNIQUE: Multidetector volumetric imaging was performed of the abdomen and pelvis before and after the IV administration of 94 mL of Optiray 320 intravenous contrast. Sagittal and coronal reformatted images were obtained on the technologist's workstation. FINDINGS: LUNG BASES: The visualized lung bases are unremarkable. LIVER, GALLBLADDER, AND BILIARY TREE: The liver is normal in size, shape, and attenuation. No focal hepatic lesion or biliary ductal dilatation is present. The gallbladder is unremarkable with no evidence of radiopaque gallstones, gallbladder wall thickening, or obvious pericholecystic inflammatory changes. PANCREAS: Unremarkable. SPLEEN: Unremarkable. ADRENAL GLANDS: Unremarkable. KIDNEYS AND URETERS: The kidneys are normal in size, shape, and attenuation. No hydronephrosis, hydroureter, or calculi seen. No perinephric stranding. BLADDER: Unremarkable. GASTROINTESTINAL TRACT: There are multiple foci of free air within the abdomen, as well as including underlying the diaphragms. This may be related to recent surgery, needs clinical correlation. There is a thickening of the wall of the cecum, right and left colon. There appears to wall thickening of portions of the transverse colon as well, as well as possibly the sigmoid colon, evaluation limited due to lack of distention. The findings correlate with colitis, of uncertain etiology, differential considerations include infectious, inflammatory etiologies. Vascular etiology cannot be entirely excluded. There are surgical clips noted in the right lower quadrant in the region of the cecum correlating with the clinical history of appendectomy. There may be some wall thickening of the distal/terminal ileum, which may be related to lack of distention. No dilated small bowel loops are seen. There is a free fluid within the pelvis, Hounsfield's 27, compatible with mild complexity. ABDOMINAL WALL: No significant hernia is appreciated. LYMPH NODES: No pathologically enlarged lymph nodes are seen in the retroperitoneum, mesentery, pelvic or inguinal region. VASCULAR: Normal caliber aorta. There is enhancement of the origin of the celiac artery, with the proximalmost origin of the celiac artery not well seen, with some degree of attenuation not excluded, The origins of the celiac and SANGITA demonstrate normal enhancement. PELVIC VISCERA: Unremarkable. OSSEOUS STRUCTURES: Unremarkable. IMPRESSION: 1. Clinical history of appendectomy. There are multiple foci of free air present within the abdomen. This may be related to the recent surgery, close clinical correlation and follow-up is needed. 2. Wall thickening of the cecum, right colon, left colon, and suspected portions of the transverse colon. Evaluation for thickening of the transverse colon and sigmoid colon is limited due to lack of distention. The imaging findings are suspicious for colitis, of uncertain etiology. Differential consideration include infectious, inflammatory etiologies. Vascular etiology cannot be entirely excluded. 3. Small free fluid in the pelvis, Hounsfield 27, compatible with mild complexity. 4. Suboptimal visualization of the origin of the celiac artery. The visualized portion demonstrates enhancement. Narrowing of this artery cannot be excluded. Further evaluation with CTA as clinically warranted.
--- NOTE | 2017-02-12 10:49 | NUR ---
PT C/O POTASSIUM BURNING ARM. RATE SLOWED
--- NOTE | 2017-02-12 11:47 | History & Physical ---
JACQUI ROCHA 02/12/17 1146: General Information and HPI MD Statement: I have seen and personally examined JOSUE MAKI and documented this H&P. The patient is a 21 year old M who presented with a patient stated chief complaint of [abdominal pain ]. Source of Information: patient Exam Limitations: no limitations History of Present Illness: 21 y/o man with no past medical history presents to the ED with c/o abdominal pain. According to the patient he underwent appendectomy on February 07, 2017, at which time he had presented with right sided lwoer quadrant pain and diarrhea that had been going on for about a week. He underwent lap appy on 02/07/17 and was discharged home Saturday on PO Augmentin. He states he had some abdominal discomfort but the pain progressivley worsened to the point where he decided to come to the ER. He describes his pain as stabbing and pressure like, grading it as a 6/10, with no radiation, no urinary symtoms, but associated with nausea, vomiting , bringing up anything that he eats. Also endorses loose non-bloody, watery diarrhea, with an avg 5 episodes/ day. Dneies fever, chills, chest discomfot, palpitations, headache. Endorses non-purulent phlegm production. Allergies/Medications Allergies: Coded Allergies: No Known Allergies (02/07/17) Home Med list Amoxicillin/Potassium Clav (Augmentin 875-125 Tablet) 875 MG-125 MG TABLET 1 TAB PO BID INFECTION Oxycodone HCl/Acetaminophen (Percocet 5-325 MG Tablet) 5 MG-325 MG TABLET 1-2 TAB PO Q4P PRN PAIN SCALE 4-6 (MODERATE) Past History Travel History Traveled to [place] past 21 day No Medical History Neurological: NONE EENT: NONE Cardiovascular: NONE Respiratory: NONE Gastrointestinal: NONE Hepatic: NONE Renal: NONE Musculoskeletal: NONE Psychiatric: NONE Endocrine: NONE Blood Disorders: NONE Cancer(s): NONE 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 Home Who Do You Live With? 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 EENTM: Denies: visual changes. Cardiovascular: Denies: chest pain, palpitations, peripheral edema. Respiratory: Reports: cough, sputum production. Denies: hemoptysis, orthopnea, short of breath, wheezing. GI: Reports: abdominal pain, diarrhea, nausea, vomiting. Denies: constipation, bloody stool. Genitourinary: Denies: discharge, dysuria, frequency, hematuria, pain. Musculoskeletal: Reports: no symptoms. Neurological/Psychological: Denies: headache, numbness, tingling, tremors. Exam & Diagnostic Data Last 24 Hrs of Vital Signs/I&O Vital Signs Date Time Temp Pulse Resp B/P B/P Pulse O2 O2 Flow FiO2 Mean Ox Delivery Rate 02/12 1052 97.2 70 18 122/64 100 02/12 0913 97.0 58 20 115/56 100 Room Air 02/12 0703 98 Room Air 02/12 0656 97.9 64 18 126/73 100 Room Air Intake & Output 02/12 1600 02/12 0800 02/12 0000 Intake Total 1100 Output Total Balance 1100 Intake, IV 1100 Patient 160 lb Weight Physical Exam General Appearance Alert, Oriented X3, Cooperative, No Acute Distress HEENT Atraumatic, PERRLA, EOMI, dry mucous membranes Neck Supple, No JVD, No thryomegaly, +2 Carotid Pulse wo Bruit, No LAD Cardiovascular Regular Rate, Normal S1, Normal S2, No Murmurs Lungs Clear to Auscultation, Normal Air Movement Abdomen Normal Bowel Sounds, Soft, tenderness to palpation in RLQ, with laparotomy scars that are well healed with no drainage noted. Neurological Normal Speech, Strength at 5/5 X4 Ext, Normal Tone, Sensation Intact, Cranial Nerves 3-12 NL, Reflexes 2+ Extremities No Clubbing, No Cyanosis, No Edema, Normal Pulses, No Tenderness/ Swelling Vascular Normal Pulses, Pulses Symmetrical Last 24 Hrs of Labs/Cali: Laboratory Tests 02/12/17 0721: Urine Color YEL, Urine Clarity CLEAR, Urine pH 7.0, Ur Specific [place] 1.020, Urine Protein 100 H, Urine Ketones >=80, Urine Nitrite NEG, Urine Bilirubin POS @ICTO H, Urine Urobilinogen 0.2, Ur Leukocyte Esterase NEG, Ur Microscopic SEDIMENT EXAMINED, Urine RBC 10-15 H, Urine WBC RARE, Ur Epithelial Cells FEW, Urine Bacteria FEW H, Urine Mucus MANY H, Urine Hemoglobin MOD H, Urine Glucose NEG 02/12/17 0702: Anion Gap 13, Estimated GFR > 60, BUN/Creatinine Ratio 20.0, Glucose 88, Calcium 8.9, Total Bilirubin 0.7, AST 25, ALT 42, Alkaline Phosphatase 111, Total Protein 6.1 L, Albumin 3.5, Globulin 2.6, Albumin/Globulin Ratio 1.3, CBC w Diff NO MAN DIFF REQ, RBC 4.11 L, MCV 89.9, MCH 30.0, RDW 12.8, MPV 7.7, Gran % 72.7, Lymphocytes % 9.3 L, Monocytes % 12.7 H, Eosinophils % 5.0, Basophils % 0.3, Absolute Granulocytes 6.8 H, Absolute Lymphocytes 0.9 L, Absolute Monocytes 1.2 H, Absolute Eosinophils 0.5, Absolute Basophils 0, PUBS MCHC 33.4 Microbiology 02/12 1151 STOOL: Clostridium difficile Toxin A & B - RECD 02/12 1151 STOOL: Vibrio Culture - RECD 02/12 1151 STOOL: Yersinia Culture - RECD 02/12 1151 STOOL: Stool Culture - RECD 02/12 1149 BLOOD: Blood Culture - RECD 02/12 1140 BLOOD: Blood Culture - RECD Diagnostic Data Other Results SERVICE DATE: 02/12/17 EXAM TYPE: CAT - CT ABD & PELVIS W IV CONTRAST FINDINGS: LUNG BASES: The visualized lung bases are unremarkable. LIVER, GALLBLADDER, AND BILIARY TREE: The liver is normal in size, shape, and attenuation. No focal hepatic lesion or biliary ductal dilatation is present. The gallbladder is unremarkable with no evidence of radiopaque gallstones, gallbladder wall thickening, or obvious pericholecystic inflammatory changes. PANCREAS: Unremarkable. SPLEEN: Unremarkable. ADRENAL GLANDS: Unremarkable. KIDNEYS AND URETERS: The kidneys are normal in size, shape, and attenuation. No hydronephrosis, hydroureter, or calculi seen. No perinephric stranding. BLADDER: Unremarkable. GASTROINTESTINAL TRACT: There are multiple foci of free air within the abdomen, as well as including underlying the diaphragms. This may be related to recent surgery, needs clinical correlation. There is a thickening of the wall of the cecum, right and left colon. There appears to wall thickening of portions of the transverse colon as well, as well as possibly the sigmoid colon, evaluation limited due to lack of distention. The findings correlate with colitis, of uncertain etiology, differential considerations include infectious, inflammatory etiologies. Vascular etiology cannot be entirely excluded. There are surgical clips noted in the right lower quadrant in the region of the cecum correlating with the clinical history of appendectomy. There may be some wall thickening of the distal/terminal ileum, which may be related to lack of distention. No dilated small bowel loops are seen. There is a free fluid within the pelvis, Hounsfield's 27, compatible with mild complexity. ABDOMINAL WALL: No significant hernia is appreciated. LYMPH NODES: No pathologically enlarged lymph nodes are seen in the retroperitoneum, mesentery, pelvic or inguinal region. VASCULAR: Normal caliber aorta. There is enhancement of the origin of the celiac artery, with the proximalmost origin of the celiac artery not well seen, with some degree of attenuation not excluded, The origins of the celiac and SANGITA demonstrate normal enhancement. PELVIC VISCERA: Unremarkable. OSSEOUS STRUCTURES: Unremarkable. IMPRESSION: 1. Clinical history of appendectomy. There are multiple foci of free air present within the abdomen. This may be related to the recent surgery, close clinical correlation and follow-up is needed. 2. Wall thickening of the cecum, right colon, left colon, and suspected portions of the transverse colon. Evaluation for thickening of the transverse colon and sigmoid colon is limited due to lack of distention. The imaging findings are suspicious for colitis, of uncertain etiology. Differential consideration include infectious, inflammatory etiologies. Vascular etiology cannot be entirely excluded. 3. Small free fluid in the pelvis, Hounsfield 27, compatible with mild complexity. 4. Suboptimal visualization of the origin of the celiac artery. The visualized portion demonstrates enhancement. Narrowing of this artery cannot be excluded. Further evaluation with CTA as clinically warranted. Assessment/Plan Assessment: 21 y/o man with no past medical history presents to the ED with c/o abdominal pain. Vitals on admission BP: 122/64; RR: 18; Pulse: 70, A/F, saturating 100% on RA. Labs were pertinent with WBC: 9300, H&H: 12.3/36.9, platelet 299,000. Serum chemisteries Na: 136, K:3.0; A, Cr: 0.5, BUN: 10. LFTS are unremarkable with a normal AST/ALT: 25/42; Alkaline phosphatase: 111; total bili: 0.7. UA showed preteinuria, bilirubinemia, negative for nitrite and esterace. CT Abdomen/Pelvis: Clinical history of appendectomy. There are multiple foci of free air present within the abdomen. Wall thickening of the cecum, right colon, left colon, and suspected portions of the transverse colon. Evaluation for thickening of the transverse colon and sigmoid colon is limited due to lack of distention. The imaging findings are suspicious for colitis, of uncertain etiology. Small free fluid in the pelvis, Hounsfield 27, compatible with mild complexity. Suboptimal visualization of the origin of the celiac artery. The visualized portion demonstrates enhancement. Narrowing of this artery cannot be excluded. In the ER he received Tylenol 1000mg IV, Flagyl 500mg IV, Morphine 4mg IV x1, Zofran 4mg X1, KCL x1, normal saline bolus 1000ml X1. Assesment and Plan: Admit to General Medicine. #Abdominal pain with nausa, in the settinig of CT scan findings suggestive of colitis. -Most likely 2/2 inflammatory reaction from surgery vs C. Diff colitis (patient has only been on Augmentin since Saturday and already had symtoms prior) vs peritonitis (unlikely (no fever, leukocytosis, acute abdomen etc). - Will hydrate him with IVF with K supplementation fo rnow @ 75mls/hr. - Will consider starting him on Flagyl to provide anaerobic covergae and would consider Cipro for gram negative, however starting him on Cipro pre-disposes him to C. Diff infection. - F/U toxin for C. Diff - F/U stool cultures. - F/U with Dr. Lara regarding his antibiotic choice (Flagyl and Cipro) and potentially transfer him on to Gen Hilda service. - Vitals q shift. - Zofran as needed for nausea. - IV tylenol and Morphine for abdominal pain. - DVT Prophylaxis - Heparin 5000IU TID SC - Diet - NPO for now - Advance as tolerated. - Code Status - Full COde. # As Ranked By This Provider Problem List: 1. Acute colitis 2. Nausea and vomiting 3. Hypokalemia Core Measures/Miscellaneous Acute Coronary Syndrome ACS Diagnosis: No Cerebrovascular Accident CVA/TIA Diagnosis: No Congestive Heart Failure CHF Diagnosis: No VTE (View Protocol) VTE Risk Factors: Age > 40 No [facility] VTE prophylaxis d/t: No contraindications No VTE Pharm Prophylaxis d/t: No contraindications VTE Diagnosis: No VTE Type: NONE VTE Confirmed by (Test): NONE Sepsis (View Protocol) Severe Sepsis Present: No Septic Shock Septic Shock Present: No Miscellaneous Documentation Attending Case Discussed With: BROOKE PRATHER MD Primary Care Physician: KOREY LONG MD Patient sees these Specialists Dr. Lara - Gen Surg Level of Patient Care: General Medicine Consults Needed: Consulting Specialty: General Surgery Resident Review Statement Resident Statement: admitted by resident CAL MALLORY MD 02/12/17 1725: Attending MD Review Statement Attending Statement Attending MD Statement: examined this patient, discuss w/resident/PA/DEBT RECOVERY OFFICER, agreed w/resident/PA/DEBT RECOVERY OFFICER, reviewed EMR data (avail), discussed with nursing, amended to note Attending Assessment/Plan: Patient seen and examined. I have reviewed on agree with the history and physical as documented by the medical billing specialist above. Patient continues to report loose bowel movements today. Denies any nausea vomiting. He continues to complain of ongoing abdominal pain. He reports no significant relief of his symptoms at present. On examination he is a young male not in obvious distress. He is afebrile and hemodynamically stable. Heart sounds are regular. Lungs are clear to auscultation bilaterally. Abdomen is mildly protuberant weight healing laparoscopy incision sites. There is mild erythema around the umbilicus incision. He has tenderness in the right upper and lower quadrants. There is no rebound or guarding. Bowel sounds are present. Problems: 1. Pancolitis status post laparoscopic appendectomy done 4 days ago. Recommendations: -Admit to the inpatient service. -The general surgery service has been notified of the patient's admission and he has been seen by the surgical PA awaiting evaluation by the general surgeon. -Clostridium difficile testing has returned negative. At present will manage patient has a case of infectious colitis with IV Rocephin and IV Flagyl. -Check lactic acid levels if elevated recommend reconsultation the surgical service to reevaluate the patient for possible ischemic colitis. -Keep nothing by mouth. Hydrate with D5 half and is at 125 mL an hour. -Continue potassium supplementation intravenously. Repeat serum chemistry and CBC in a.m. -If abdominal pain worsens overnight obtain and abdominal x-ray and notify the surgical service immediately. -Optimize pain control right now by administration IV Tylenol [id number] rather than when necessary and admission morphine 2 mg every 3 hours when necessary pain.
--- NOTE | 2017-02-12 11:55 | NUR ---
STOOL SAMPLE SENT TO LAB.
--- NOTE | 2017-02-12 12:41 | NUR ---
PT HAD ADDITIONAL LOOSE BM. C/O CONTINUED ABD PAIN AND MD OSMAN NOTIFIED. MEDICATED WITH FLAGYL PER eMAR
--- NOTE | 2017-02-12 13:27 | NUR ---
MEDICATED WITH ZOFRAN FOR NAUSEA AND MORPHINE FOR PAIN AND DIARRHEA. OFFERS NO OTHER COMPLAINTS AT THIS TIME AND IN AGREEMENT WITH PLAN. CALL MONTENEGRO IN REACH. DECLINES HEPARIN AT THIS TIME AND PT IS AMBULATORY FREQUENTLY
--- NOTE | 2017-02-12 14:59 | NUR ---
PT HAS BED ASSIGNMENT 203-1
--- NOTE | 2017-02-12 16:02 | NUR ---
REPORT GIVEN TO GUIDO SAENZ AND ANSWERED ALL QUESTIONS. TRANSPORT BOOKED.
[2017-02-12 16:52] VITALS: BP 130/70
--- NOTE | 2017-02-12 17:35 | Admission Certification ---
Admission Certification Certification Statement - As attending physician, I certify that at the time of - admission, based on clinical presentation, severity of - symptoms, need for further diagnostic testing and - therapeutic interventions, and risk of adverse outcomes - without in-hospital treatment, in my clinical assessment, - this patient requires an acute hospital stay for a minimum - of two nights or longer. I have also considered psychsocial - factors such as support system, advanced age, financial - issues, cognitive issues, and failed out-patient treatments, - past re-admission history, safety of patient, and lack of - compliance as applicable. Specific rationale supporting this admission is: Patient requires further management of his johnson colitis.
--- NOTE | 2017-02-12 19:25 | NUR ---
1650 PATIENT ARRIVED TO FLOOR. ALERT AND ORIENTED X 3. ON ROOM AIR. DENIES SHORTNESS OF BREATH VITAL SIGNS STABLE. DENIES CHEST PAIN. + PULSES. DENIES NUMBNESS/TINGLING DSG TO UMBILICUS AND L ABD ARE C/D/I. STEADY GAIT MEDICATION GIVEN FOR DISCOMFORT. WILL CONTINUE TO MONITOR
[2017-02-12 21:35] VITALS: BP 120/62
[2017-02-13 06:44] VITALS: BP 106/64
--- NOTE | 2017-02-13 07:36 | PN- Housestaff ---
JACQUI ROCHA 02/13/17 0735: Subjective Follow-up For: - Colitis s/p appendectomy Complaints: no complaints Subjective: Patient seen and examined at bedside. He states he is hungry, and denies nausea and vomiting, endorses abdominal pain that is improving. Review of Systems Constitutional: Denies: chills, fever, malaise, weakness. EENTM: Denies: visual changes. Cardiovascular: Denies: chest pain, orthopena, palpitations, peripheral edema. Respiratory: Denies: cough, short of breath, sputum production, wheezing. Gastrointestinal: Reports: abdominal pain, diarrhea. Denies: constipation, nausea, vomiting. Genitourinary: Denies: discharge, frequency, hematuria. Musculoskeletal: Reports: no symptoms. Neurological/Psychological: Denies: headache, numbness, tingling, tremors. Objective Last 24 Hrs of Vital Signs/I&O Vital Signs Date Time Temp Pulse Resp B/P B/P Pulse O2 O2 Flow FiO2 Mean Ox Delivery Rate 02/13 0644 98.1 55 20 106/64 98 02/12 2135 97.8 52 20 120/62 99 02/12 1652 98.3 58 20 130/70 100 02/12 1600 99.0 66 20 114/72 100 Room Air 02/12 1313 97.8 60 18 118/67 99 Room Air 02/12 1052 97.2 70 18 122/64 100 02/12 0913 97.0 58 20 115/56 100 Room Air Intake & Output 02/13 0800 / 0000 02/12 1600 Intake Total 855 20 Output Total Balance 855 20 Intake, IV 655 Intake, Oral 200 20 Number 1 2 Bowel Movements Patient 160 lb Weight Physical Exam General Appearance: Alert, Oriented X3, Cooperative, No Acute Distress HEENT: Atraumatic, PERRLA, EOMI, Mucous Membr. moist/pink Neck: Supple, No JVD, No LAD Cardiovascular: Regular Rate, Normal S1, Normal S2, No Murmurs Lungs: Clear to Auscultation, Normal Air Movement Abdomen: Normal Bowel Sounds, Soft, No Tenderness Neurological: Normal Speech, Strength at 5/5 X4 Ext, Normal Tone, Sensation Intact, Cranial Nerves 3-12 NL, Reflexes 2+ Extremities: No Clubbing, No Cyanosis, No Edema, Normal Pulses, No Tenderness/ Swelling Vascular: Normal Pulses, Pulses Symmetrical Current Medications: Current Medications Sig/Bird Start time Last Medication Dose Route Stop Time Status Admin Acetaminophen 1,000 MG TID 02/13 1200 UNVr IV Acetaminophen 650 MG Q6 02/12 1800 DC 02/13 PO 0636 Acetaminophen 650 MG Q6P PRN 02/12 1300 DC PO Acetaminophen 1,000 MG Q6P PRN 02/12 1300 DC IV Ceftriaxone Sodium 1,000 MG DAILY 02/13 1000 UNVr IV Ciprofloxacin 500 MG BID 02/12 1527 DC 02/12 PO 02/13 1526 2258 Heparin Sodium 5,000 UNIT Q8 02/12 1400 AC (Porcine) SC Melatonin 5 MG ONCE ONE 02/12 2330 DC 02/12 PO 02/12 2331 2344 Metronidazole 500 MG IQ8 02/12 1600 AC 02/13 N/A 1 UNIT IV 02/13 1559 0008 Metronidazole 500 MG ONCE ONE 02/12 1115 DC 02/12 N/A 1 UNIT IV 02/12 1214 1241 Morphine Sulfate 2 MG Q3P PRN 02/12 1745 AC 02/13 IV 0525 Morphine Sulfate 0 .STK-MED ONE 02/12 1324 DC .ROUTE Morphine Sulfate 2 MG Q4P PRN 02/12 1300 DC 02/12 IV 1718 Morphine Sulfate 0 .STK-MED ONE 02/12 0758 DC .ROUTE Morphine Sulfate 4 MG ONCE ONE 02/12 0745 DC 02/12 IV 02/12 0746 0754 Ondansetron HCl 0 .STK-MED ONE 02/12 1325 DC .ROUTE Ondansetron HCl 4 MG Q6P PRN 02/12 1315 AC IV Potassium Chloride 20 MEQ Q13H 02/12 1745 AC 02/12 Dextrose/Sodium 1,000 ML IV 02/13 1944 1813 Chloride Potassium Chloride 20 MEQ Q13H 02/12 1300 DC 02/12 Sodium Chloride 1,000 ML IV 02/13 1459 1340 Potassium Chloride 10 MEQ Q1H 02/12 0830 DC 02/12 IV 02/12 0931 1000 Sodium Chloride 1,000 ML BOLUS ONE 02/12 0700 DC 02/12 IV 02/12 0759 0715 Last 24 Hrs of Lab/Cali Results Last 24 Hrs of Labs/Mics: Laboratory Tests 02/13/17 0605: Sodium Pending, Potassium Pending, Chloride Pending, Carbon Dioxide Pending, Anion Gap Pending, BUN Pending, Creatinine Pending, BUN/Creatinine Ratio Pending , CBC w Diff Pending, WBC Pending, RBC Pending, Hgb Pending, Hct Pending, MCV Pending, MCH Pending, RDW Pending, Plt Count Pending, MPV Pending, PUBS MCHC Pending 02/12/17 1915: Lactic Acid 0.6 L Microbiology 02/12 1151 STOOL: Clostridium difficile Toxin A & B - RES 02/12 1151 STOOL: Vibrio Culture - RES 02/12 1151 STOOL: Yersinia Culture - RES 02/12 1151 STOOL: Stool Culture - RES 02/12 1149 BLOOD: Blood Culture - RECD 02/12 1140 BLOOD: Blood Culture - RECD Assessment/Plan Assessment: 21 y/o man with no past medical history presents to the ED with c/o abdominal pain. Vitals on admission BP: 122/64; RR: 18; Pulse: 70, A/F, saturating 100% on RA. Labs were pertinent with WBC: 9300, H&H: 12.3/36.9, platelet 299,000. Serum chemisteries Na: 136, K:3.0; A, Cr: 0.5, BUN: 10. LFTS are unremarkable with a normal AST/ALT: 25/42; Alkaline phosphatase: 111; total bili: 0.7. UA showed preteinuria, bilirubinemia, negative for nitrite and esterace. CT Abdomen/Pelvis: Clinical history of appendectomy. There are multiple foci of free air present within the abdomen. Wall thickening of the cecum, right colon, left colon, and suspected portions of the transverse colon. Evaluation for thickening of the transverse colon and sigmoid colon is limited due to lack of distention. The imaging findings are suspicious for colitis, of uncertain etiology. Small free fluid in the pelvis, Hounsfield 27, compatible with mild complexity. Suboptimal visualization of the origin of the celiac artery. The visualized portion demonstrates enhancement. Narrowing of this artery cannot be excluded. In the ER he received Tylenol 1000mg IV, Flagyl 500mg IV, Morphine 4mg IV x1, Zofran 4mg X1, KCL x1, normal saline bolus 1000ml X1. He was admitted to General Medicine and the following problemsare being addressed: Assesment and Plan: #Abdominal pain with nausa, in the settinig of CT scan findings suggestive of colitis. -Most likely 2/2 inflammatory reaction from surgery - Continue hydration with IVF with K supplementation fornow @ 75mls/hr. - Started on Ceftraixone and Fagyl. Continue the same. - F/U stool cultures, C. diff toxin was negative. - F/U with Dr. Marco stack advancing his diet to clears. - Vitals q shift. - Zofran as needed for nausea. - IV tylenol RTC and Morphine for abdominal pain. - DVT Prophylaxis - Heparin 5000IU TID SC - Diet - Advanced to clears as per surgery recs. - Code Status - Full COde. Problem List: 1. Acute colitis 2. Nausea and vomiting 3. Hypokalemia Pain Ratin Pain Location: Right lower quadrant Pain Goal: Remain pain free Pain Plan: IV tylenol scheduled, and morphine Tomorrow's Labs & Rationales: CBC -WBC count BEP = potassium Consulting Request: Consulting Specialty: General Surgery CAL MALLORY MD 02/13/17 1225: Attending MD Review Statement Attending Statement Attending MD Statement: examined this patient, discuss w/resident/PA/THREAD WEAVER, agreed w/resident/PA/THREAD WEAVER, reviewed EMR data (avail), discussed with nursing, discussed with case mgmt, amended to note Attending Assessment/Plan: Patient seen and examined. Reports feeling better today dose still with some abdominal pain. Denies nausea vomiting. He was seen by the general surgery service this morning and started on a clear liquid diet. He tolerated the diet this morning. On examination: Distended soft. Tenderness is localized to the right lower quadrant today and appears less intense. There is no rebound or guarding. Bowel sounds are normal. Recommendations: -Continue empiric antibiotic therapy for his colitis. The general surgery service is recommending Cipro/Flagyl. -Continue diet as tolerated. -Outpatient referral to the gastroenterology service for colonoscopy once colitis is completely resolved. -Patient is agrees to use compression device and to ambulate frequently
[2017-02-13 07:59] LABS: ABSOLUTE BASOPHIL COUNT 0 /CUMM (0.0-0.2); ABSOLUTE EOSINOPHIL COUNT 0.7 /CUMM (0.0-0.7); ABSOLUTE GRANULOCYTE CT 6.6 /CUMM (1.4-6.5); ABSOLUTE LYMPH COUNT 1.2 /CUMM (1.2-3.4); ABSOLUTE MONOCYTE COUNT 1.3 /CUMM (0.10-0.60); BASOPHIL % 0.4 % (0.0-2.0); EOSINOPHIL % 6.7 % (0-5); GRANULOCYTE % 67.3 % (42.2-75.2); HEMATOCRIT 33.6 % (42-52); MEAN CORPUSCULAR HGB 30.3 PG (27.0-31.0); MEAN CORPUSCULAR HGB CONC 33.5 G/DL (33.0-37.0); MEAN CORPUSCULAR VOLUME 90.2 FL (80.0-94.0); MEAN PLATELET VOLUME 7.7 FL (7.4-10.4); PLATELET COUNT 294 /CUMM (130-400); RBC DISTRIBUTION WIDTH 12.9 % (11.5-14.5); RED BLOOD CELL CT 3.73 /CUMM (4.70-6.10); WHITE BLOOD CELL COUNT 9.8 /CUMM (4.8-10.8)
--- NOTE | 2017-02-13 08:22 | Cons- General Surgery ---
General Information and HPI Consulting Request Date of Consult: 02/13/17 Requested By: BROOKE PRATHER MD Reason for Consult: Abdominal pain/N/V/diarrhea, s/p Lap Appy Source of Information: patient History of Present Illness: 21 year old male POD4/5 S/P Lap Appy with above complaints. Has been having diarrhea even before surgery, got worse after. Pain localized to lower abdomen. States he is hungry. Allergies/Medications Allergies: Coded Allergies: No Known Allergies (02/07/17) Home Med List: Amoxicillin/Potassium Clav (Augmentin 875-125 Tablet) 875 MG-125 MG TABLET 1 TAB PO BID INFECTION Oxycodone HCl/Acetaminophen (Percocet 5-325 MG Tablet) 5 MG-325 MG TABLET 1-2 TAB PO Q4P PRN PAIN SCALE 4-6 (MODERATE) Current Medications: Current Medications Sig/Bird Start time Last Medication Dose Route Stop Time Status Admin Acetaminophen 1,000 MG TID 02/13 1200 AC IV Acetaminophen 650 MG .STK-MED ONE 02/13 0006 DC PO 02/13 0007 Acetaminophen 650 MG Q6 02/12 1800 DC 02/13 PO 0636 Acetaminophen 650 MG Q6P PRN 02/12 1300 DC PO Acetaminophen 1,000 MG Q6P PRN 02/12 1300 DC IV Ceftriaxone Sodium 1,000 MG DAILY 02/13 1000 AC IV Ciprofloxacin 500 MG BID 02/12 1527 DC 02/12 PO 02/13 1526 2258 Heparin Sodium 5,000 UNIT Q8 02/12 1400 AC (Porcine) SC Melatonin 5 MG ONCE ONE 02/12 2330 DC 02/12 PO 02/12 2331 2344 Metronidazole 500 MG IQ8 02/12 1600 AC 02/13 N/A 1 UNIT IV 02/13 1559 0008 Metronidazole 500 MG ONCE ONE 02/12 1115 DC 02/12 N/A 1 UNIT IV 02/12 1214 1241 Morphine Sulfate 2 MG Q3P PRN 02/12 1745 AC 02/13 IV 0525 Morphine Sulfate 0 .STK-MED ONE 02/12 1324 DC .ROUTE Morphine Sulfate 2 MG Q4P PRN 02/12 1300 DC 02/12 IV 1718 Ondansetron HCl 0 .STK-MED ONE 02/12 1325 DC .ROUTE Ondansetron HCl 4 MG Q6P PRN 02/12 1315 AC IV Potassium Chloride 20 MEQ Q13H 02/12 1745 AC 02/12 Dextrose/Sodium 1,000 ML IV 02/13 1944 1813 Chloride Potassium Chloride 20 MEQ Q13H 02/12 1300 DC 02/12 Sodium Chloride 1,000 ML IV 02/13 1459 1340 Potassium Chloride 10 MEQ Q1H 02/12 0830 DC 02/12 IV 02/12 0931 1000 Past History Medical History Blood Transfusion Hx: No Neurological: NONE EENT: NONE Cardiovascular: NONE Respiratory: NONE Gastrointestinal: NONE, colitis Hepatic: NONE Renal: NONE Musculoskeletal: NONE Psychiatric: NONE Endocrine: NONE Blood Disorders: NONE Cancer(s): NONE 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 Home Who Do You Live With? parent Services at Home: None Primary Language: [place] Smoking Status: Current Everyday Smoker ETOH Use: occasional use Illicit Drug Use: denies illicit drug use Employment History Employment: Employed Profession/Employer: [employer] Review of Systems Review of Systems: All negative aside for the above mentioned pertinent positives. Exam & Diagnostic Data Vital Signs and I&O Vital Signs Date Time Temp Pulse Resp B/P B/P Pulse O2 O2 Flow FiO2 Mean Ox Delivery Rate 02/13 0644 98.1 55 20 106/64 98 02/12 2135 97.8 52 20 120/62 99 02/12 1652 98.3 58 20 130/70 100 02/12 1600 99.0 66 20 114/72 100 Room Air 02/12 1313 97.8 60 18 118/67 99 Room Air 02/12 1052 97.2 70 18 122/64 100 02/12 0913 97.0 58 20 115/56 100 Room Air Intake & Output 02/13 1600 02/13 0802/13 0000 02/12 1600 02/12 0802/12 0000 Intake Total 351 80 7764 Output Total Balance 800 29 1740 Intake, IV 655 1100 Intake, Oral 200 20 Number 1 2 Bowel Movements Patient 160 lb 160 lb Weight Physical Exam General Appearance: no apparent distress, alert, awake Head: normal appearance Neck: supple Respiratory: normal breath sounds Cardiovascular: regular rate/rhythm Gastrointestinal: soft, tenderness (lower abdomen, no distention) Back: normal range of motion Extremities: normal range of motion, calf tenderness Neurologic/Psych: no motor/sensory deficits Last 24 Hours of Labs: Laboratory Tests 02/13 02/12 0605 1915 Chemistry Sodium Pending Potassium Pending Chloride Pending Carbon Dioxide Pending Anion Gap Pending BUN Pending Creatinine Pending BUN/Creatinine Ratio Pending Lactic Acid (0.7 - 2.1 mmol/L) 0.6 L Hematology CBC w Diff Pending WBC Pending RBC Pending Hgb Pending Hct Pending MCV Pending MCH Pending RDW Pending Plt Count Pending MPV Pending PUBS MCHC Pending Imaging Results: CT scan - diffuse colitis, small amount of free air likely post-procedure Assessment/Plan Assessment/Plan Colitis s/p recent Lap Appy -Does not appear to be a surgical issue at this point -IVF hydration -Abx for the colitis, would continue flagyl even with a negative CDT -Would start a clear liquid diet as patient is hungry -please reconsult if status changes, does not appear to be a surgical issue at this time Consult Acknowledgment - Thank you for your consult request.
--- NOTE | 2017-02-13 12:30 | NUR ---
NURSING NOTE: PT VOMITED APPROX 150ML OF LIGHT YELLOW LIQUID AFTER DRINKING CHICKEN BROTH, DENIES NAUSEA AFTER, DOESNT WANT ANTIEMTIC AT THIS TIME, MOUTH WASH GIVEN, JACQUI RESIDENT AWARE.
--- NOTE | 2017-02-13 13:08 | NUR ---
NURSING NOTE: PT VOMITED APPROX 50ML OF YELLOW LIQUID, JACQUI NOTIFIED, ZOFRAN GIVEN.
[2017-02-13 14:13] VITALS: BP 120/70
[2017-02-13 21:49] VITALS: BP 128/80
--- NOTE | 2017-02-14 04:35 | NUR ---
NSG NOTE: PT VOMITED APPROXIMATELY 50 ML OF LIGHT YELLOW LIQUID. MD SMITH #[id number] AWARE. PT MEDICATED WITH ZOFRAN PER ORDER. WILL MONITOR.
[2017-02-14 06:25] VITALS: BP 118/74
--- NOTE | 2017-02-14 07:22 | PN- Housestaff ---
See Addendum Subjective Follow-up For: - Colitis s/p appendectomy Complaints: no complaints Subjective: Patient seen and examined at bedside. He states he had an episode of dry heaves last night, ,and brought up minimal vomitus. States that his abdominal pain is much better, denies fever, chills. Review of Systems Constitutional: Denies: chills, diaphoresis, fever, weakness. EENTM: Denies: visual changes. Cardiovascular: Denies: chest pain, orthopena, palpitations, peripheral edema. Respiratory: Denies: cough, hemoptysis, orthopnea, short of breath, stridor, wheezing. Gastrointestinal: Reports: abdominal pain, nausea, vomiting. Genitourinary: Denies: discharge, frequency, hematuria, pain, urgency. Musculoskeletal: Denies: back pain, joint pain, joint swelling. Neurological/Psychological: Denies: headache, numbness, tingling, tremors. Objective Last 24 Hrs of Vital Signs/I&O Vital Signs Date Time Temp Pulse Resp B/P B/P Pulse O2 O2 Flow FiO2 Mean Ox Delivery Rate 02/14 0625 98.6 55 20 118/74 99 Room Air 02/13 2149 98.5 78 18 128/80 98 Room Air 02/13 1413 98.2 51 18 120/70 98 Room Air Intake & Output 02/14 0800 02/14 0000 02/13 1600 Intake Total 236 959 6761 Output Total 550 900 Balance 90 665 500 Intake, IV 400 425 600 Intake, Oral 240 240 800 Number 0 Bowel Movements Output, 50 150 Emesis Output, Urine 500 750 Physical Exam General Appearance: Alert, Oriented X3, Cooperative, No Acute Distress HEENT: Atraumatic, PERRLA, EOMI, Mucous Membr. moist/pink Neck: Supple, No JVD, No thryomegaly, +2 Carotid Pulse wo Bruit, No LAD Cardiovascular: Regular Rate, Normal S1, Normal S2, No Murmurs Lungs: Clear to Auscultation, Normal Air Movement Abdomen: Normal Bowel Sounds, Soft, very mild tenderness topalpation in right lower quadrant Neurological: Normal Speech, Strength at 5/5 X4 Ext, Normal Tone, Sensation Intact, Cranial Nerves 3-12 NL, Reflexes 2+ Extremities: No Clubbing, No Cyanosis, No Edema, Normal Pulses, No Tenderness/ Swelling Vascular: Normal Pulses, Pulses Symmetrical Current Medications: Current Medications Sig/Bird Start time Last Medication Dose Route Stop Time Status Admin Acetaminophen 1,000 MG TID 02/13 1200 AC 02/13 IV 2136 Acetaminophen 650 MG Q6 02/12 1800 DC 02/13 PO 0636 Acetaminophen 1,000 MG Q6P PRN 02/12 1300 DC IV Ceftriaxone Sodium 1,000 MG DAILY 02/13 1000 AC 02/13 IV 1115 Ciprofloxacin 500 MG BID 02/12 1527 DC 07 PO 02/13 1526 2258 Heparin Sodium 5,000 UNIT Q8 02/12 1400 AC (Porcine) SC Metronidazole 500 MG IQ8 02/12 1600 DC 02/13 N/A 1 UNIT IV 02/13 1559 0824 Morphine Sulfate 2 MG Q3P PRN 02/12 1745 AC 02/14 IV 0431 Ondansetron HCl 4 MG Q6P PRN 02/12 1315 AC 02/14 IV 0426 Patient Medication 1 ED .STK-MED ONE 02/13 1432 DC Teaching ED 02/13 1433 Potassium Chloride 10 MEQ Q1H 02/13 1330 DC 02/13 IV 02/13 1431 2048 Potassium Chloride 20 MEQ Q13H 02/12 1745 DC 02/13 Dextrose/Sodium 1,000 ML IV 02/13 1944 0824 Chloride Trimethobenzamide HCl 200 MG ONCE ONE 02/13 1745 DC 02/13 IM 02/13 1746 1748 Last 24 Hrs of Lab/Cali Results Last 24 Hrs of Labs/Mics: Laboratory Tests 02/14/17 0623: Anion Gap 13, Estimated GFR > 60, BUN/Creatinine Ratio 6.0 L, CBC w Diff Pending, WBC Pending, RBC Pending, Hgb Pending, Hct Pending, MCV Pending, MCH Pending, RDW Pending, Plt Count Pending, MPV Pending, PUBS MCHC Pending Assessment/Plan Assessment: 21 y/o man with no past medical history presents to the ED with c/o abdominal pain. Vitals on admission BP: 122/64; RR: 18; Pulse: 70, A/F, saturating 100% on RA. Labs were pertinent with WBC: 9300, H&H: 12.3/36.9, platelet 299,000. Serum chemisteries Na: 136, K:3.0; A, Cr: 0.5, BUN: 10. LFTS are unremarkable with a normal AST/ALT: 25/42; Alkaline phosphatase: 111; total bili: 0.7. UA showed preteinuria, bilirubinemia, negative for nitrite and esterace. CT Abdomen/Pelvis: Clinical history of appendectomy. There are multiple foci of free air present within the abdomen. Wall thickening of the cecum, right colon, left colon, and suspected portions of the transverse colon. Evaluation for thickening of the transverse colon and sigmoid colon is limited due to lack of distention. The imaging findings are suspicious for colitis, of uncertain etiology. Small free fluid in the pelvis, Hounsfield 27, compatible with mild complexity. Suboptimal visualization of the origin of the celiac artery. The visualized portion demonstrates enhancement. Narrowing of this artery cannot be excluded. In the ER he received Tylenol 1000mg IV, Flagyl 500mg IV, Morphine 4mg IV x1, Zofran 4mg X1, KCL x1, normal saline bolus 1000ml X1. He was admitted to General Medicine and the following problemsare being addressed: Assesment and Plan: #Abdominal pain with nausa, in the settinig of CT scan findings suggestive of colitis. - Most likely 2/2 inflammatory reaction from surgery - DC IVFs - Continue Ceftraixone and Fagyl. - C. diff toxin was negative, stool culture unremarkable. - F/U with Dr. Marco stack advancing his diet to full liquid and regular later tonight - Vitals q shift. - Zofran as needed for nausea. - IV tylenol RTC and Morphine for abdominal pain. - DVT Prophylaxis - Heparin 5000IU TID SC - Diet - Advanced to full later this afternoon - Code Status - Full COde. Problem List: 1. Nausea, vomiting, and diarrhea 2. Acute colitis Pain Ratin Pain Location: right lower quadrant Pain Goal: Remain pain free Pain Plan: tyelnol and morphine Tomorrow's Labs & Rationales: n/a Consulting Request: Consulting Specialty: General Surgery
[2017-02-14 09:00] LABS: ABSOLUTE BASOPHIL COUNT 0.1 /CUMM (0.0-0.2); ABSOLUTE EOSINOPHIL COUNT 0.5 /CUMM (0.0-0.7); ABSOLUTE GRANULOCYTE CT 8.8 /CUMM (1.4-6.5); ABSOLUTE LYMPH COUNT 1.2 /CUMM (1.2-3.4); ABSOLUTE MONOCYTE COUNT 1.2 /CUMM (0.10-0.60); BASOPHIL % 0.4 % (0.0-2.0); GRANULOCYTE % 74.6 % (42.2-75.2); MEAN CORPUSCULAR HGB 30.2 PG (27.0-31.0); MEAN CORPUSCULAR HGB CONC 33.4 G/DL (33.0-37.0); MEAN CORPUSCULAR VOLUME 90.4 FL (80.0-94.0); MEAN PLATELET VOLUME 7.9 FL (7.4-10.4); PLATELET COUNT 365 /CUMM (130-400); RBC DISTRIBUTION WIDTH 12.9 % (11.5-14.5); RED BLOOD CELL CT 3.87 /CUMM (4.70-6.10); WHITE BLOOD CELL COUNT 11.7 /CUMM (4.8-10.8)
--- NOTE | 2017-02-14 09:14 | Discharge Summary ---
Visit Information Visit Dates Admission Date: 02/12/17 Discharge Date: 02/15/17 Hospital Course Course Attending Physician: BROOKE PRATHER MD Primary Care Physician: KOREY LONG MD Consulting Request: Consulting Specialty: General Surgery Hospital Course: 21 y/o man with no past medical history presents to the ED with c/o abdominal pain. Vitals on admission BP: 122/64; RR: 18; Pulse: 70, A/F, saturating 100% on RA. Labs were pertinent with WBC: 9300, H&H: 12.3/36.9, platelet 299,000. Serum chemisteries Na: 136, K:3.0; A, Cr: 0.5, BUN: 10. LFTS are unremarkable with a normal AST/ALT: 25/42; Alkaline phosphatase: 111; total bili: 0.7. UA showed preteinuria, bilirubinemia, negative for nitrite and esterace. CT Abdomen/Pelvis: Clinical history of appendectomy. There are multiple foci of free air present within the abdomen. Wall thickening of the cecum, right colon, left colon, and suspected portions of the transverse colon. Evaluation for thickening of the transverse colon and sigmoid colon is limited due to lack of distention. The imaging findings are suspicious for colitis, of uncertain etiology. Small free fluid in the pelvis, Hounsfield 27, compatible with mild complexity. Suboptimal visualization of the origin of the celiac artery. The visualized portion demonstrates enhancement. Narrowing of this artery cannot be excluded. In the ER he received Tylenol 1000mg IV, Flagyl 500mg IV, Morphine 4mg IV x1, Zofran 4mg X1, KCL x1, normal saline bolus 1000ml X1. He was admitted to General Medicine and the following problemsare being addressed: He was admitted to Gen Med and the following problems were addressed: #Abdominal pain with nausa, in the settinig of CT scan findings suggestive of colitis. This was initially thought to be 2/2 inflammatory reaction from surgery versus C.diff (which was r/o with toxin for C. Diff being negative). Gen jaygry was consulted, who recommended continuation of antibiotics, and advancemen of diet as tolerated. He was transitioned to Cipro and Flagyl. He will need OP followup with Gen Surg for his appendectomy, and GI for colonoscopy. Allergies: Coded Allergies: No Known Allergies (02/07/17) Significant Procedures: SERVICE DATE: 02/12/17 EXAM TYPE: CAT - CT ABD & PELVIS W IV CONTRAST FINDINGS: LUNG BASES: The visualized lung bases are unremarkable. LIVER, GALLBLADDER, AND BILIARY TREE: The liver is normal in size, shape, and attenuation. No focal hepatic lesion or biliary ductal dilatation is present. The gallbladder is unremarkable with no evidence of radiopaque gallstones, gallbladder wall thickening, or obvious pericholecystic inflammatory changes. PANCREAS: Unremarkable. SPLEEN: Unremarkable. ADRENAL GLANDS: Unremarkable. KIDNEYS AND URETERS: The kidneys are normal in size, shape, and attenuation. No hydronephrosis, hydroureter, or calculi seen. No perinephric stranding. BLADDER: Unremarkable. GASTROINTESTINAL TRACT: There are multiple foci of free air within the abdomen, as well as including underlying the diaphragms. This may be related to recent surgery, needs clinical correlation. There is a thickening of the wall of the cecum, right and left colon. There appears to wall thickening of portions of the transverse colon as well, as well as possibly the sigmoid colon, evaluation limited due to lack of distention. The findings correlate with colitis, of uncertain etiology, differential considerations include infectious, inflammatory etiologies. Vascular etiology cannot be entirely excluded. There are surgical clips noted in the right lower quadrant in the region of the cecum correlating with the clinical history of appendectomy. There may be some wall thickening of the distal/terminal ileum, which may be related to lack of distention. No dilated small bowel loops are seen. There is a free fluid within the pelvis, Hounsfield's 27, compatible with mild complexity. ABDOMINAL WALL: No significant hernia is appreciated. LYMPH NODES: No pathologically enlarged lymph nodes are seen in the retroperitoneum, mesentery, pelvic or inguinal region. VASCULAR: Normal caliber aorta. There is enhancement of the origin of the celiac artery, with the proximalmost origin of the celiac artery not well seen, with some degree of attenuation not excluded, The origins of the celiac and SANGITA demonstrate normal enhancement. PELVIC VISCERA: Unremarkable. OSSEOUS STRUCTURES: Unremarkable. IMPRESSION: 1. Clinical history of appendectomy. There are multiple foci of free air present within the abdomen. This may be related to the recent surgery, close clinical correlation and follow-up is needed. 2. Wall thickening of the cecum, right colon, left colon, and suspected portions of the transverse colon. Evaluation for thickening of the transverse colon and sigmoid colon is limited due to lack of distention. The imaging findings are suspicious for colitis, of uncertain etiology. Differential consideration include infectious, inflammatory etiologies. Vascular etiology cannot be entirely excluded. 3. Small free fluid in the pelvis, Hounsfield 27, compatible with mild complexity. 4. Suboptimal visualization of the origin of the celiac artery. The visualized portion demonstrates enhancement. Narrowing of this artery cannot be excluded. Further evaluation with CTA as clinically warranted. Disposition Summary Disposition Principal Diagnosis: Colitis 2/2 inflammatory changes form recent appendectomy Additional Diagnosis: None Discharge Disposition: home or self care Discharge Instructions General Discharge Information Code Status: Full Code Patient's Diet: Regular Patient's Activity: As tolerated Follow-Up Instructions/Appts: - You are being provided referral to GI doctor for colonoscopy. Please make an appointment within 2 weeks of discharge. - Please follow up with your primary care physician in one week. - Please follow up with your general surgeon within a week of discharge. Medications at Discharge Discharge Medications: Stop taking the following medications: Amoxicillin/Potassium Clav (Augmentin 875-125 Tablet) 875 MG-125 MG TABLET ORAL TWICE DAILY Qty = 20 Start taking the following new medications: Ciprofloxacin HCl (Cipro) 500 MG TABLET 1 Tablet ORAL TWICE DAILY Qty = 21 No Refills Instructions: . Metronidazole (Flagyl) 500 MG TABLET 1 Tablet ORAL EVERY 8 HOURS Qty = 32 No Refills Instructions: . Copies To: FRANCHESKA LOU,PRERNA Munoz; RUIZ VARGAS DO; ETHAN LOU,KOREY Valera MD Review Statement Documenting Attending: CAL MALLORY M.D Other Findings: Patient presented to the emergency room with complaints of abdominal pain a few days after undergoing laparoscopic cholecystectomy. Pathology report shows acute appendicitis. CT imaging on presentation showed pancolitis for which he was managed conservative therapy. His abdominal pain improved and he was able to be upgraded to regular diet. He tolerated this well and was ambulating around the unit freely and was discharged home in stable condition. Upon discharge was noted that he had significant leukocytosis markedly elevated. Patient was notified of this and asked return to the emergency room to obtain a CT scan. CT scan of the abdomen was obtained. Patient continued to do well clinically. CT scan revealed 1. Clinical history of appendectomy. There are multiple foci of free air present within the abdomen. This may be related to the recent surgery, close clinical correlation and follow-up is needed. 2. Wall thickening of the cecum, right colon, left colon, and suspected portions of the transverse colon. Evaluation for thickening of the transverse colon and sigmoid colon is limited due to lack of distention. The imaging findings are suspicious for colitis, of uncertain etiology. Differential consideration include infectious, inflammatory etiologies. Vascular etiology cannot be entirely excluded. 3. Small free fluid in the pelvis, Hounsfield 27, compatible with mild complexity. 4. Suboptimal visualization of the origin of the celiac artery. The visualized portion demonstrates enhancement. Narrowing of this artery cannot be excluded. Further evaluation with CTA as clinically warranted. The case was discussed with psych tech Prerna Acosta MD by the ER team. Decision was made to discharge the patient home and have him follow-up with the gastroenterology service as an outpatient on Saturday for workup for possible inflammatory bowel disease.
[2017-02-14 14:17] VITALS: BP 110/71
--- NOTE | 2017-02-14 19:49 | NUR ---
PT RESTING COMFORTABLY, NO SIGNS OF DISTRESS NOTED, NO BM OBSERVED BY THIS RN. LAPROSCOPIC SITES X3, CDI. STERI STRIP PRESENT ON PROXIMAL TO UMBILICUS. NO PAIN REPORTED.
[2017-02-14 22:41] VITALS: BP 118/72
[2017-02-15 06:05] VITALS: BP 122/60
--- NOTE | 2017-02-15 07:20 | PN- Housestaff ---
See Addendum Subjective Follow-up For: - Colitis s/p appendectomy Subjective: Patient seen and examiend at [facility]. States that he feels much better and is tolerating food well. Endorses mild abdominal cramping, deneis efver, chills. Review of Systems Constitutional: Denies: chills, fever, weakness. EENTM: Denies: visual changes. Cardiovascular: Denies: chest pain, palpitations. Respiratory: Denies: cough, short of breath, sputum production. Gastrointestinal: Denies: abdominal pain, constipation, diarrhea, nausea, vomiting. Genitourinary: Reports: no symptoms. Musculoskeletal: Reports: no symptoms. Neurological/Psychological: Denies: headache, numbness, tingling, tremors. Objective Last 24 Hrs of Vital Signs/I&O Vital Signs Date Time Temp Pulse Resp B/P B/P Pulse O2 O2 Flow FiO2 Mean Ox Delivery Rate 02/15 0605 98.2 67 20 122/60 98 Room Air 02/14 2241 98.2 62 20 118/72 97 02/14 1417 98.5 58 20 110/71 98 Room Air Intake & Output 02/15 0800 02/15 0000 02/14 1600 Intake Total 240 600 900 Output Total 750 Balance 240 600 150 Intake, IV 100 Intake, Oral 240 600 800 Number 3 Bowel Movements Output, Urine 750 Physical Exam General Appearance: Alert, Oriented X3, Cooperative, No Acute Distress HEENT: Atraumatic, PERRLA, EOMI, Mucous Membr. moist/pink Neck: Supple, No JVD, No thryomegaly, +2 Carotid Pulse wo Bruit, No LAD Cardiovascular: Regular Rate, Normal S1, Normal S2, No Murmurs Lungs: Clear to Auscultation, Normal Air Movement Abdomen: Normal Bowel Sounds, Soft, No Tenderness Neurological: Normal Gait, Normal Speech, Strength at 5/5 X4 Ext, Normal Tone, Sensation Intact, Cranial Nerves 3-12 NL, Reflexes 2+ Extremities: No Clubbing, No Cyanosis, No Edema, Normal Pulses, No Tenderness/ Swelling Current Medications: Current Medications Sig/Bird Start time Last Medication Dose Route Stop Time Status Admin Acetaminophen 1,000 MG TID 02/13 1200 AC 02/14 IV 1048 Ceftriaxone Sodium 1,000 MG DAILY 02/13 1000 AC 02/14 IV 1048 Heparin Sodium 5,000 UNIT Q8 02/12 1400 AC (Porcine) SC Morphine Sulfate 2 MG Q3P PRN 02/12 1745 AC 02/15 IV 0339 Ondansetron HCl 4 MG Q6P PRN 02/12 1315 AC 02/14 IV 0426 Patient Medication 1 ED .[facility] ONE 02/14 1358 [facility] ED 02/14 1359 Last 24 Hrs of Lab/Cali Results Last 24 Hrs of Labs/Mics: Laboratory Tests 02/15/17 0603: CBC w Diff Pending, WBC Pending, RBC Pending, Hgb Pending, Hct Pending, MCV Pending, MCH Pending, RDW Pending, Plt Count Pending, MPV Pending, PUBS MCHC Pending Assessment/Plan Assessment: 21 y/o man with no past medical history presents to the ED with c/o abdominal pain. Vitals on admission BP: 122/64; RR: 18; Pulse: 70, A/F, saturating 100% on RA. Labs were pertinent with WBC: 9300, H&H: 12.3/36.9, platelet 299,000. Serum chemisteries Na: 136, K:3.0; A, Cr: 0.5, BUN: 10. LFTS are unremarkable with a normal AST/ALT: 25/42; Alkaline phosphatase: 111; total bili: 0.7. UA showed preteinuria, bilirubinemia, negative for nitrite and esterace. CT Abdomen/Pelvis: Clinical history of appendectomy. There are multiple foci of free air present within the abdomen. Wall thickening of the cecum, right colon, left colon, and suspected portions of the transverse colon. Evaluation for thickening of the transverse colon and sigmoid colon is limited due to lack of distention. The imaging findings are suspicious for colitis, of uncertain etiology. Small free fluid in the pelvis, Houns[place] 27, compatible with mild complexity. Suboptimal visualization of the origin of the celiac artery. The visualized portion demonstrates enhancement. Narrowing of this artery cannot be excluded. In the ER he received Tylenol 1000mg IV, Flagyl 500mg IV, Morphine 4mg IV x1, Zofran 4mg X1, KCL x1, normal saline bolus 1000ml X1. He was admitted to General Medicine and the following problemsare being addressed: Assesment and Plan: #Abdominal pain with nausa, in the settinig of CT scan findings suggestive of colitis. - Most likely 2/2 inflammatory reaction from surgery -Transition to Cipro and Flagyl Continue Ceftriaxone and Fagyl. - C. diff toxin was negative, stool culture unremarkable. - Diet advanced to regular. He will need OP followup with Gen Surg, GI for colonoscopy. - Vitals q shift. - Zofran as needed for nausea. - D/C IV tyelnol and Morphine.. Swicth to PO tyelenol . Patiuent can be discahrged home today. - DVT Prophylaxis - Heparin 5000IU TID SC - Diet - Regular - Code Status - Full COde. Problem List: 1. Nausea and vomiting 2. Acute colitis Pain Ratin Pain Location: n/a Pain Goal: Remain pain free Pain Plan: tyelnol Tomorrow's Labs & Rationales: n/a Consulting Request: Consulting Specialty: General Surgery Discharge Plan Discharge Disposition: home Stable for Discharge? Yes Anticipated Discharge (Day): today
[2017-02-15] MEDS ORDERED: FLAGYL500 MG PO ×2 (07:26→11:08)
[2017-02-15] MEDS ORDERED: CIPRO500 M1 PO ×2 (07:26→11:08)
--- NOTE | 2017-02-15 07:31 | Patient Discharge Instructions ---
Discharge Instructions General Discharge Information You were seen/treated for: - Colitis 2/2 inflammation s/p appendectomy Special Instructions: - You are being provided referral to GI doctor for colonoscopy. Please make an appointment within 2 weeks of discharge. - Please follow up with your primary care physician in one week. - Please follow up with your general surgeon within a week of discharge. Diet Recommended Diet: Regular Activity Activity Self Limited: Yes Acute Coronary Syndrome Inclusion Criteria At DC or during hospital stay patient has or had the following: ACS DIAGNOSIS No Discharge Core Measures Meds if any: Prescribed or Continued at Discharge Meds if any: NOT Prescribed or Continued at Discharge Congestive Heart Failure Inclusion Criteria At DC or during hospital stay patient has or had the following: CHF DIAGNOSIS No Discharge Core Measures Meds if any: Prescribed or Continued at Discharge Meds if any: NOT Prescribed or Continued at Discharge Cerebrovascular accident Inclusion Criteria At DC or during hospital stay patient has or had the following: CVA/TIA Diagnosis No Discharge Core Measures Meds if any: Prescribed or Continued at Discharge Meds if any: NOT Prescribed or Continued at Discharge Venous thromboembolism Inclusion Criteria VTE Diagnosis No VTE Type NONE VTE Confirmed by (Test) NONE Discharge Core Measures - Per Current guidelines, there needs to be overlap - treatment for the first 5 days of Warfarin therapy. - If discharged on Warfarin prior to 5 days of - overlap therapy, the patient will need to be - assessed for post discharge needs including - *Post discharge parental anticoagulation - *Warfarin and/or parental anticoagulation education - *Follow up date to check INR post discharge At least 5 days overlap therapy as Inpatient No Meds if any: Prescribed or Continued at Discharge Note: Overlap Therapy is Warfarin and Anticoagulant Meds if any: NOT Prescribed or Continued at Discharge
[2017-02-15 08:32] LABS: ABSOLUTE BASOPHIL COUNT 0.1 /CUMM (0.0-0.2); ABSOLUTE EOSINOPHIL COUNT 0.5 /CUMM (0.0-0.7); ABSOLUTE GRANULOCYTE CT 11.7 /CUMM (1.4-6.5); ABSOLUTE LYMPH COUNT 1.9 /CUMM (1.2-3.4); ABSOLUTE MONOCYTE COUNT 1.3 /CUMM (0.10-0.60); BASOPHIL % 0.3 % (0.0-2.0); EOSINOPHIL % 3.3 % (0-5); GRANULOCYTE % 75.8 % (42.2-75.2); HEMATOCRIT 35.2 % (42-52); MEAN CORPUSCULAR HGB 30.2 PG (27.0-31.0); MEAN CORPUSCULAR HGB CONC 33.3 G/DL (33.0-37.0); MEAN CORPUSCULAR VOLUME 90.6 FL (80.0-94.0); MEAN PLATELET VOLUME 7.5 FL (7.4-10.4); PLATELET COUNT 441 /CUMM (130-400); RED BLOOD CELL CT 3.89 /CUMM (4.70-6.10); WHITE BLOOD CELL COUNT 15.4 /CUMM (4.8-10.8)
== END 2017-02-15 11:38 | DRG 249 ==
LOC: ERH 06:28 → 2NB 11:10 → ERHI 11:10 → ENRESERV 14:53 → ENTRNSPT 16:05 → 2NB 16:47 → CMPTRNSPT 17:03 → 2NB 02-14 18:20 → ENPENDDIS 02-15 10:50 → 2NB 02-15 11:38
PROVIDERS: Emergency Medicine; Internal Medicine Infectious Disease; ADMIT Internal Medicine
DX: K52.89 Other specified noninfective gastroenteritis and colitis (principal); Z98.890 Other specified postprocedural states; F17.210 Nicotine dependence, cigarettes, uncomplicated; E87.6 Hypokalemia
CPT/HCPCS: 2NBP; 36415; 74176; 74177; 81001; 82436; 87040; 87045; 96365; 96366; 96374; 96375; J0131; J0696; J1644; J2405; J3250; J7042